=== PATIENT | female | born 1970 | race Two or more races ===

== ENCOUNTER 2024-05-05 11:11 | Emergency (ER) | payer BC, OTHER ==
[~2024-05-05] VITALS: Ht 154.9 cm; Wt 84.8 kg
[2024-05-05 11:54] VITALS: BP 129/84; PULSE 98; RESP 18; TEMP 98.8; O2SAT 93
[2024-05-05 13:31] LABS: Basophils # (auto) 0 10 ^3/uL (0-0.2); Basophils % (auto) 0.4 % (0.0-2.0); Eosinophils # (auto) 0.1 10 ^3/uL (0-0.8); Eosinophils % (auto) 0.8 % (0.0-7.0); Hematocrit 44.9 % (36.0-46.0); Hemoglobin 15.5 g/dL (12.2-16.2); Lymphocytes # (auto) 2.1 10 ^3/uL (0.4-5.4); Lymphocytes % (auto) 25.4 % (10.0-50.0); Mean Corpuscular Hemoglobin 29.8 pg (28.0-32.0); Mean Corpuscular Hgb Conc. 34.4 g/dL (32.0-36.0); Mean Corpuscular Volume 86.5 fL (80.0-100.0); Monocytes # (auto) 0.8 10 ^3/uL (0-1.3); Monocytes % (auto) 9.3 % (0.0-12.0); Neutrophils # (auto) 5.3 10 ^3/uL (1.6-8.6); Neutrophils % (auto) 64.1 % (37.0-80.0); Red Blood Cells 5.19 10^6/uL (4.0-5.20); Red Cell Distribution Width 14.6 % (11.8-14.3); White Blood Cell 8.2 10^3/uL (4.4-10.8)
[2024-05-05 13:36] LABS: Urine Bacteria FEW /hpf (None Seen); Urine Blood TRACE /uL (Negative); Urine Clarity Clear (Clear); Urine Color Colorless (Yellow); Urine Protein, UAD Negative (Negative); Urine Specific Gravity 1.006 (1.001-1.035); Urine Urobilinogen Normal (Negative); Urine WBC 1 /hpf (0 - 5)
[2024-05-05 13:46] LABS: Chloride 107 mmol/L (98-107); Sodium 140 mmol/L (136-145)
[2024-05-05 13:47] LABS: Anion Gap 7 (5-15); Calcium 9.6 mg/dL (8.7-10.4); Carbon Dioxide 26 mmol/L (20-30)
[2024-05-05 13:52] LABS: BUN/Creatinine Ratio 11.5 (10.0-20.0); Blood Urea Nitrogen 9 mg/dL (9-23); Glucose 94 mg/dL (74-106)
[2024-05-05] MEDS ORDERED: PRED20TA2 PO (14:09)
[2024-05-05] MEDS ORDERED: AUG875T PO (14:16)
== END 2024-05-05 14:18 | disposition home or self-care (01) ==
LOC: ER 11:11
DX: G44.209 Tension-type headache, unspecified, not intractable (principal); H66.93 Otitis media, unspecified, bilateral; Z86.2 Personal history of diseases of the blood and blood-forming organs and certain disorders involving the immune mechanism
CPT/HCPCS: 36415; 70450; 80048; 81001; 85025

== ENCOUNTER 2025-03-29 11:46 | Inpatient (IN) | payer BC ==
[~2025-03-29] VITALS: Ht 157.5 cm; Wt 86.7 kg
[~2025-03-29 11:46] MED LIST: AUG875T PO; PRED20TA2 PO
[2025-03-29] MEDS: SODIUM CHLORIDE 0.9% 500 ML IVB ONE (12:15)
--- NOTE | 2025-03-29 12:20 | ED.PDOC ---
HPI (NEURO) HPI Comments 54 y/o F, presents to the ED for CC of dizziness. Patient states, she has been experiencing symptoms of dizziness with associated substernal chest pain that radiates to her back [id number]. Patient reports, chest pain to feel as acid reflex; describes pain to be burning in sensation. Patient denies change in vision, palpitations, nausea, vomiting, chills, or fever. No other symptoms or modifying factors present at this time. Chief Complaint: Dizziness Time Seen by MD: 12:05 Primary Care Provider: RATNA Zazueta Notes: Nurses Notes, Medications, Allergies Information Source: Patient Mode of Arrival: Ambulatory Severity: Moderate Dizziness/Weakness Severity: Does not affect activitie Headache Severity: None Timing: Months Duration: Since onset Prehospital treatment: None Onset: At rest Circumstances: Spontaneous Symptoms: Vertigo, None Before: Normal During: Awake After: Normal Mentation History of: None Modifying factors: Nothing Associated Signs and Symptoms: Chest Pain Past Medical History PAST MEDICAL HISTORY: Anemia Surgical History: Denies all surgeries FIRER LOCOMOTIVE History: No Pertinent FIRER LOCOMOTIVE History Family History Family History: Reviewed,noncontributory to illness Social History Smoker: Non-Smoker Alcohol: Denies ETOH Use Drugs: Denies Drug Use Lives In: Home Constitutional: denies: chills, diaphoresis, fatigue, fever, malaise, sweats, weakness, others EENTM: denies: blurred vision, double vision, ear bleeding, ear discharge, ear drainage, ear pain, ear ringing, eye pain, eye redness, hearing loss, mouth pain, mouth swelling, nasal discharge, nose bleeding, nose congestion, nose pain, photophobia, tearing, throat pain, throat swelling, voice changes, others Respiratory: denies: cough, hemoptysis, orthopnea, SOB at rest, shortness of breath, SOB with excertion, stridor, wheezing, others Cardiovascular: reports: chest pain; denies: dizzy spells, diaphoresis, Dyspnea on exertion, edema, irregular heart beat, left arm pain, lightheadedness, palpitations, PND, syncope, others Gastrointestinal: denies: abdomen distended, abdominal pain, blood streaked bowels, constipated, diarrhea, dysphagia, difficulty swallowing, hematemesis, melena, nausea, poor appetite, poor fluid intake, rectal bleeding, rectal pain, vomiting, others Genitourinary: reports: abnormal vagina bleeding, burning, dyspareunia, dysuria , flank pain, frequency, hematuria, incontinence, pain, , vagina discharge, urgency, others Neurological: reports: dizziness; denies: fainting, headache, left sided numbness, left sided weakness, numbness, paresthesia, pre-existing deficit, right sided numbness, right sided weakness, seizure, speech problems, tingling, tremors, weakness, others Musculoskeletal: denies: back pain, gout, joint pain, joint swelling, muscle pain, muscle stiffness, neck pain, others Integumetry: denies: bruises, change in color, change in hair/nails, dryness, laceration, lesions, lumps, rash, wounds, others Allergic/Immunocompromised: denies: Difficulty Healing, Frequent Infections, Hives, Itching, others Hematologic/Lymphatic: denies: anemia, blood clots, easy bleeding, easy bruising, swollen glands, others Endocrine: denies: excessive hunger, excessive sweating, excessive thirst, excessive urination, flushing, intolerance to cold, intolerance to heat, unexplained weight gain, unexplained weight loss, others Psychiatric: denies: anxiety, bipolar disorder, depression, hopeless, panic disorder, schizophrenia, sleepless, suicidal, others All Other Systems: Reviewed and Negative Physical Exam General Appearance: Moderate Distress HEENT: Normal ENT Inspection, Pharynx Normal, TMs Normal Neck: Full Range of Motion, Non-Tender, Normal, Normal Inspection Respiratory: Chest Non-Tender, Lungs Clear, No Accessory Muscle Use, No Respiratory Distress, Normal Breath Sounds Cardiovascular: No Edema, No JVD, No Murmur, No Gallop, Normal Peripheral Pulses, Regular Rate/Rhythm Breast Exam: Deferred Gastrointestinal: No Organomegaly, Non Tender, No Pulsatile Mass, Normal Bowel Sounds, Soft Genitalia: Deferred Pelvic: Deferred Rectal: Deferred Extremities: No calf tenderness, Normal capillary refill, No pedal edema Musculoskeletal : Apperance: Normal Neurologic: Alert, tax processor II-XII nml as Tested, Motor Weakness, Normal Affect, Normal Mood, No Sensory Deficits Cerebellar Function: Normal Reflexes: Normal Skin: Dry, Normal Color, Warm Lymphatic: No Adenopathy EKG EKG : Pulse Rate (adult): 96 [place]: Normal Cardiac Rhythm: NSR Block: None Hypertrophy: None ST: Normal Was a procedure done? Was a procedure done?: No Differential Diagnosis (SZ) Seizure: N/A General Weakness: Vertigo: central, Vertigo: peripheral X-Ray, Labs, Meds, VS Vital Signs Date Time Temp Pulse Resp B/P (MAP) Pulse Ox O2 Delivery O2 Flow Rate FiO2 03/29/25 13:16 86 18 125/85 (98) 98 03/29/25 13:16 86 18 98 03/29/25 12:20 96 03/29/25 12:13 96 03/29/25 11:51 98.7 102 18 142/73 (96) 95 98.7 Lab Test 03/29/25 14:00 03/29/25 13:00 03/29/25 11:58 03/29/25 11:55 Range/Units Troponin I High Sensitivity < 3 L < 3 L </=34 ng/L White Blood Count 7.2 4.4-10.8 10^3/uL Red Blood Count 4.83 4.0-5.20 10^6/uL Hemoglobin 14.1 12.2-16.2 g/dL Hematocrit 41.9 36.0-46.0 % Mean Corpuscular Volume 86.7 80.0-100.0 fL Mean Corpuscular Hemoglobin 29.2 28.0-32.0 pg Mean Corpuscular Hemoglobin Concent 33.7 32.0-36.0 g/dL Red Cell Distribution Width 13.8 11.8-14.3 % Platelet Count 239 140-450 10^3/uL Mean Platelet Volume 8.4 6.9-10.8 fL Neutrophils (%) (Auto) 50.6 37.0-80.0 % Lymphocytes (%) (Auto) 35.2 10.0-50.0 % Monocytes (%) (Auto) 10.8 0.0-12.0 % Eosinophils (%) (Auto) 2.9 0.0-7.0 % Basophils (%) (Auto) 0.5 0.0-2.0 % Neutrophils # (Auto) 3.6 1.6-8.6 10 ^3/uL Lymphocytes # (Auto) 2.5 0.4-5.4 10 ^3/uL Monocytes # (Auto) 0.8 0-1.3 10 ^3/uL Eosinophils # (Auto) 0.2 0-0.8 10 ^3/uL Basophils # (Auto) 0 0-0.2 10 ^3/uL Nucleated Red Blood Cells 0.2 % Sodium Level 146 H 136-145 mmol/L Potassium Level 3.7 3.5-5.1 mmol/L Chloride Level 110 H 98-107 mmol/L Carbon Dioxide Level 26 20-31 mmol/L Anion Gap 10 5-15 Blood Urea Nitrogen 13 9-23 mg/dL Creatinine 0.76 0.550-1.02 mg/dL Glomerular Filtration Rate Calc 93 >90 mL/min BUN/Creatinine Ratio 17.1 10.0-20.0 Serum Glucose 106 74-106 mg/dL Calcium Level 9.5 8.7-10.4 mg/dL Total Bilirubin 0.3 0.2-1.0 mg/dL Aspartate Amino Transferase (AST) 34 <34 U/L Alanine Aminotransferase (ALT) 47 H 7-40 U/L Alkaline Phosphatase 186 H 46-116 U/L Total Protein 6.9 5.7-8.2 g/dL Albumin 4.3 3.2-4.8 g/dL Lipase 22 12-53 U/L POC Glucose 157 H 70-106 mg/dl Urine Color Colorless Yellow Urine Clarity Clear Clear Urine pH 5.5 5.0-9.0 Urine Specific [place] 1.010 1.001-1.035 Urine Protein Negative Negative Urine Ketones Negative Negative Urine Blood Negative Negative /uL Urine Nitrite Negative Negative Urine Bilirubin Negative Negative Urine Urobilinogen Normal Negative mg/dL Urine Leukocyte Esterase Negative Negative /uL Urine RBC 2 0 - 4 /hpf Urine Microscopic WBC < 1 0-5 /HPF Urine Squamous Epithelial Cells None seen <5 /hpf Urine Bacteria None seen None Seen /hpf Urine Glucose Normal Normal mg/dL Current Medications Medications (Trade) Dose Ordered Sig/Lucila Route Start Time Stop Time Status Last Admin Ondansetron HCl (Zofran) 4 mg ONCE ONCE IV 03/29/25 12:15 03/29/25 12:16 DC 03/29/25 13:00 Sodium Chloride 500 ml @ 500 mls/hr Q1H ONCE IVB 03/29/25 12:15 03/29/25 13:14 DC 03/29/25 12:15 GALLBLADDER US: Impression: Echogenic liver which can be seen with hepatic steatosis, cirrhosis. The patient's urine test is negative for infection The patient's CBC is within normal limits The chemistry panel is within normal limits The troponin level x2 is negative The patient is still having persistent symptoms The patient was given an IV with the Zofran 4 mg IV push The patient was also given normal saline as a bolus The patient continues to be symptomatic Images Reviewed?: Images reviewed and evaluated by me Time of 1ST Reevaluation: 12:35 Reevaluation 1ST: Unchanged Patient Education/Counseling: Diagnosis, Treatment, Prognosis Family Education/Counseling: No Family Present Departure 1 Departure Time of Disposition: 15:02 Impression: Primary Impression: Autonomic dysfunction Additional Impression: Acute chest pain Disposition: 09 ADMITTED INPATIENT Admit to: Tele Condition: Fair Critical Care Note Critical Care Time?: Yes (35 min-critical care time only) Stability Stability form required: Yes Unstable for transfer: Telemetry monitoring (Telemetry monitoring required), ED Physician Assesment (Clinical assesment) Heart Score Heart Score: Heart Score Response (Comments) Value History Moderate Suspicious 1 EKG Repolarization Disturb 1 Age 45-64 1 Risk Factors 1 or 2 risk factors 1 Troponin N/A 0 Total 4 I personally scribed for ISAAC JULIAN MD ([email or web address]) on 03/29/25 at 12:20. Electronically submitted by [facility] [place] ([email or web address]). I personally scribed for ISAAC JULIAN MD ([email or web address]) on 03/29/25 at 12:20. Electronically submitted by [facility] [place] ([email or web address]). I personally scribed for ISAAC JULIAN MD ([email or web address]) on 03/29/25 at 13:06. Electronically submitted by [facility] [place] ([email or web address]). I personally scribed for ISAAC JULIAN MD ([email or web address]) on 03/29/25 at 13:49. Electronically submitted by [facility] [place] ([email or web address]). ISAAC JULIAN MD Mar 29, 2025 12:20
[2025-03-29 12:43] LABS: Urine Bacteria None Seen /hpf (None Seen)
[2025-03-29 12:48] LABS: Urine Blood Negative /uL (Negative); Urine Clarity Clear (Clear); Urine Color Colorless (Yellow); Urine Protein, UAD Negative (Negative); Urine Squamous Epithelial Cell None Seen /hpf (<5); Urine Urobilinogen Normal (Negative); Urine WBC < 1 /HPF (0-5); Urine pH 5.5 (5.0-9.0)
--- NOTE | 2025-03-29 12:51 | DVH ---
Technique: Real-time ultrasound imaging of the abdomen was performed with grayscale and color Doppler . Indication: pain Comparison: None Findings: Liver measures 12.8 cm. It is increased in echogenicity and echotexture without focal mass. Portal v ein is normal in caliber and demonstrates normal hepatopetal flow. Gallbladder demonstrates no evidence for cholelithiasis. There is no pericholecystic fluid. The wall thickness is normal. The common bile duct measures 5 mm. No intrahepatic biliary ductal dilatation. The right kidney measures 10.6 cm. There is no hydronephrosis or sonographic evidence of nephrolithia sis. The visualized portion of the pancreas is unremarkable. The visualized portion of the IVC is unremarkable. Impression: Echogenic liver which can be seen with hepatic steatosis, cirrhosis.
[2025-03-29] MEDS: ONDANSETRON HCL 4 MG/2 ML VIAL IV ONE (13:00)
[2025-03-29 13:15] LABS: Basophils # (auto) 0 10 ^3/uL (0-0.2); Basophils % (auto) 0.5 % (0.0-2.0); Eosinophils # (auto) 0.2 10 ^3/uL (0-0.8); Eosinophils % (auto) 2.9 % (0.0-7.0); Hematocrit 41.9 % (36.0-46.0); Hemoglobin 14.1 g/dL (12.2-16.2); Lymphocytes # (auto) 2.5 10 ^3/uL (0.4-5.4); Lymphocytes % (auto) 35.2 % (10.0-50.0); Mean Corpuscular Hemoglobin 29.2 pg (28.0-32.0); Mean Corpuscular Hgb Conc. 33.7 g/dL (32.0-36.0); Mean Corpuscular Volume 86.7 fL (80.0-100.0); Monocytes # (auto) 0.8 10 ^3/uL (0-1.3); Monocytes % (auto) 10.8 % (0.0-12.0); Neutrophils # (auto) 3.6 10 ^3/uL (1.6-8.6); Neutrophils % (auto) 50.6 % (37.0-80.0); Nucleated Red Blood Cells % 0.2 %; Platelet Count (auto) 239 10^3/uL (140-450); Red Blood Cells 4.83 10^6/uL (4.0-5.20); Red Cell Distribution Width 13.8 % (11.8-14.3); White Blood Cell 7.2 10^3/uL (4.4-10.8)
[2025-03-29 13:36] LABS: Albumin 4.3 g/dL (3.2-4.8); Anion Gap 10 (5-15); BUN/Creatinine Ratio 17.1 (10.0-20.0); Blood Urea Nitrogen 13 mg/dL (9-23); Calcium 9.5 mg/dL (8.7-10.4); Carbon Dioxide 26 mmol/L (20-31); Glucose 106 mg/dL (74-106); Potassium 3.7 mmol/L (3.5-5.1); Total Protein 6.9 g/dL (5.7-8.2)
[2025-03-29 13:37] LABS: Alanine Aminotransferase 47 U/L (7-40); Alkaline Phosphatase 186 U/L (46-116); Aspartate Aminotransferase 34 U/L (<34); Bilirubin, Total 0.3 mg/dL (0.2-1.0); Chloride 110 mmol/L (98-107); Sodium 146 mmol/L (136-145)
[2025-03-29 13:48] LABS: Lipase 22 U/L (12-53)
[2025-03-29] MEDS ORDERED: MORPHINE SULFATE INJ 2 MG/ml SYRG IV PRN (21:45)
[2025-03-29] MEDS ORDERED: NITROGLYCERIN 0.4 MG SL TAB SL PRN (21:45)
[2025-03-30 03:17] VITALS: PULSE 74; RESP 18; O2SAT 96
--- NOTE | 2025-03-30 04:15 | DVHHP2 ---
History of Present Illness Reason for Visit: Chest pain History of Present Illness 54-year-old female presents for evaluation of chest pain. Patient reports a three-month history of intermittent substernal pressure-like chest pain. She states that over the past three days the pain has become more constant and radiates to her back with associated shortness for breath and dizziness. Denies cough or fever. Past Medical History Anemia Past Surgical History Denies Family History Noncontributory Smoke: No ALCOHOL: none Drugs: None Lives: with Family Review of Systems Review of Systems Review of systems are currently negative otherwise addressed in HPI. Allergies: Coded Allergies: Codeine (Verified Allergy, Unknown, 05/05/24) Medications Current Medications Medications Dose Ordered Sig/Lucila Route Start Time Stop Time Status Last Admin Dose Admin Ondansetron HCl 4 mg Q4HP PRN IV 03/29/25 21:45 Nitroglycerin 0.4 mg Q5MINP PRN SL 03/29/25 21:45 Morphine Sulfate 2 mg Q30M PRN IV 03/29/25 21:45 Exam Vital Signs Vital Signs Date Time Temp Pulse Resp B/P (MAP) Pulse Ox O2 Delivery O2 Flow Rate FiO2 03/30/25 03:17 74 18 96 Room Air* 0 21 03/30/25 03:15 98.1 141/84 (103) 98.1 Exam Gen: 54-year-old female in no apparent distress. Skin: Warm, dry, normal color and texture, no rash. HEENT: Normocephalic atraumatic, mucous membranes moist and pink. Neck: Cervical and supraclavicular nodes normal without enlargement, trachea is midline, thyroid gland is normal without masses. Pulmonary: Clear to auscultation and percussion bilaterally. Cardiac: Regular rate and rhythm. No murmur Abdomen: Soft, nontender, nondistended, bowel sounds present all 4 quadrants, no guarding, no rigidity, no organomegaly. Extremities: No cyanosis, clubbing, no edema Neuro: Cranial nerves II through XII grossly intact, normal affect and speech, no focal motor deficits. Labs/Xrays Labs Test 03/29/25 14:00 03/29/25 13:00 03/29/25 11:58 03/29/25 11:55 Range/Units Troponin I High Sensitivity < 3 L </=34 ng/L White Blood Count 7.2 4.4-10.8 10^3/uL Red Blood Count 4.83 4.0-5.20 10^6/uL Hemoglobin 14.1 12.2-16.2 g/dL Hematocrit 41.9 36.0-46.0 % Mean Corpuscular Volume 86.7 80.0-100.0 fL Mean Corpuscular Hemoglobin 29.2 28.0-32.0 pg Mean Corpuscular Hemoglobin Concent 33.7 32.0-36.0 g/dL Red Cell Distribution Width 13.8 11.8-14.3 % Platelet Count 239 140-450 10^3/uL Mean Platelet Volume 8.4 6.9-10.8 fL Neutrophils (%) (Auto) 50.6 37.0-80.0 % Lymphocytes (%) (Auto) 35.2 10.0-50.0 % Monocytes (%) (Auto) 10.8 0.0-12.0 % Eosinophils (%) (Auto) 2.9 0.0-7.0 % Basophils (%) (Auto) 0.5 0.0-2.0 % Neutrophils # (Auto) 3.6 1.6-8.6 10 ^3/uL Lymphocytes # (Auto) 2.5 0.4-5.4 10 ^3/uL Monocytes # (Auto) 0.8 0-1.3 10 ^3/uL Eosinophils # (Auto) 0.2 0-0.8 10 ^3/uL Basophils # (Auto) 0 0-0.2 10 ^3/uL Nucleated Red Blood Cells 0.2 % Sodium Level 146 H 136-145 mmol/L Potassium Level 3.7 3.5-5.1 mmol/L Chloride Level 110 H 98-107 mmol/L Carbon Dioxide Level 26 20-31 mmol/L Anion Gap 10 5-15 Blood Urea Nitrogen 13 9-23 mg/dL Creatinine 0.76 0.550-1.02 mg/dL Glomerular Filtration Rate Calc 93 >90 mL/min BUN/Creatinine Ratio 17.1 10.0-20.0 Serum Glucose 106 74-106 mg/dL Calcium Level 9.5 8.7-10.4 mg/dL Total Bilirubin 0.3 0.2-1.0 mg/dL Aspartate Amino Transferase (AST) 34 <34 U/L Alanine Aminotransferase (ALT) 47 H 7-40 U/L Alkaline Phosphatase 186 H 46-116 U/L Total Protein 6.9 5.7-8.2 g/dL Albumin 4.3 3.2-4.8 g/dL Lipase 22 12-53 U/L POC Glucose 157 H 70-106 mg/dl Urine Color Colorless Yellow Urine Clarity Clear Clear Urine pH 5.5 5.0-9.0 Urine Specific [place] 1.010 1.001-1.035 Urine Protein Negative Negative Urine Ketones Negative Negative Urine Blood Negative Negative /uL Urine Nitrite Negative Negative Urine Bilirubin Negative Negative Urine Urobilinogen Normal Negative mg/dL Urine Leukocyte Esterase Negative Negative /uL Urine RBC 2 0 - 4 /hpf Urine Microscopic WBC < 1 0-5 /HPF Urine Squamous Epithelial Cells None seen <5 /hpf Urine Bacteria None seen None Seen /hpf Urine Glucose Normal Normal mg/dL Assessment/Plan Assessment/Plan Assessment Chest pain Plan Admit the patient to telemetry to the hospitalist ACS protocol Echocardiogram pending Continue treatment per orders. Plan discussed with: Patient My Orders Orders - MARGI HADDAD Procedure Category Date Status Time * Cardiology Consult CONS 03/29/25 Transmitted 21:36 Basic Metabolic Panel LAB 03/30/25 Logged 04:00 Admit ADMIT 03/29/25 Transmitted 21:36 Ondansetron Hcl PHA 03/29/25 In Process (Zofran) 21:45 Cardiac DIET 03/30/25 Transmitted Diet-2gna,Lofat,Lochol Breakfast Echo 2d Mode Cardiac US 03/29/25 Transmitted DOP 21:36 Condition: Fair [facility] 03/29/25 Transmitted 21:36 Bedrest With Bathroom [facility]SC[facility] 03/29/25 In Process Privileg 21:36 Nitroglycerin PHA 03/29/25 In Process Sublingual (Ntrostat 21:45 Morphine Sulfate PHA 03/29/25 In Process Injection 21:45 Stat Ekg For Chest [facility] 03/29/25 In Process Pain 21:36 Notify Of Changes [facility] 03/29/25 In Process From Base 21:36 Binding Cutter Synthetic Cloth For [facility] 03/29/25 In Process 24 Hours 21:36 Emergency Dysrhythmia [facility] 03/29/25 In Process Protocol 21:36 Rhythm Strips Once [facility] 03/29/25 In Process Every Shift 21:36 Oxygen By Nasal RT 03/29/25 Transmitted Cannula 21:36 Thyroid Stimulating LAB 03/30/25 Logged Hormone 04:10 Lipid Panel LAB 03/30/25 Logged 04:10 Date of Service: Mar 29, 2025 Billing Provider: MARGI HADDAD Common Visit Codes: [id number] INP/OBS CARE (HIGH) MARGI HADDAD Mar 30, 2025 04:15
--- NOTE | 2025-03-30 06:26 | DVH ---
EXAM: XR Chest, 1 View CLINICAL INDICATION: Pain TECHNIQUE: Frontal view of the chest. COMPARISON: No relevant prior studies available. FINDINGS: LUNGS AND PLEURAL SPACES: Unremarkable. No consolidation. No pneumothorax. HEART: Unremarkable. No cardiomegaly. MEDIASTINUM: Unremarkable. Normal mediastinal contour. BONES/JOINTS: Unremarkable. No acute fracture. IMPRESSION: No acute cardiopulmonary process.
[2025-03-30 07:40] LABS: Potassium 3.7 mmol/L (3.5-5.1); Sodium 144 mmol/L (136-145)
[2025-03-30 07:41] LABS: Anion Gap 8 (5-15); Calcium 9.6 mg/dL (8.7-10.4); Carbon Dioxide 28 mmol/L (20-31)
[2025-03-30 07:46] LABS: BUN/Creatinine Ratio 14.3 (10.0-20.0); Blood Urea Nitrogen 11 mg/dL (9-23); Glucose 100 mg/dL (74-106); Triglycerides 121 mg/dL (< 150)
[2025-03-30 07:49] LABS: Chloride 108 mmol/L (98-107); Cholesterol 186 mg/dL (< 200); HDL Cholesterol 46 mg/dL (40-59); LDL Cholesterol 133 mg/dL (< 100)
[2025-03-30 09:00] VITALS: BP 121/73; PULSE 85; RESP 18; TEMP 97.8; O2SAT 95
--- NOTE | 2025-03-30 11:06 | DVHCONRES ---
Date Seen: Mar 30, 2025 Resident Creating Document: KEVIN MONTES RESIDENT Reason for Consultation Chest pain History of Present Illness Patient is a 54-year-old female with no significant past medical history who comes in due to midepigastric pain. According to the patient, yesterday on 03/29/2025 she started experiencing a midepigastric pain which was pressure-like in nature with radiation to the back, she notes the pain as 7/10 at the time of onset without any exacerbating or relieving factors. Patient also notes he has been having similar pain intermittently for the past 3 months along with a globus sensation. Denies similar symptoms in the past. Patient also notes that she has been taking ibuprofen daily 800 mg for years due to her headache, she had an endoscopy 3 years ago which at that time was unremarkable. On review of systems patient is complaining of fatigue, shortness of breaths on exertion ongoing for the last 2 weeks and nausea. Serial troponins were <3, <3. EKG shows minimal borderline T abnormalities. Past Medical History Denies Past Surgical History Appendectomy, tummy tuck surgery Social History Smoking: Denies Alcohol: Denies Drugs: Denies Father from heart disease at the age of 89 Mother from lung cancer at the age of 64 Allergies: Coded Allergies: Codeine (Verified Allergy, Unknown, 05/05/24) Home Meds Active Scripts Amoxicillin & Pot Clavulanate (AUGMENTIN TABLET) 875 Mg Tb, 875 MG PO BID for 7 Days, #14 TAB Prov:KAYLA RICE 05/05/24 Prednisone (Prednisone) 20 Mg Tab, 60 MG PO BS, #15 TAB Prov:KAYLA RICE 05/05/24 Current Medications Current Medications Medications (Trade) Dose Ordered Sig/Lucila Route PRN Reason Start Time Stop Time Status Last Admin Ondansetron HCl (Zofran) 4 mg Q4HP PRN IV NAUSEA / VOMITING 03/29/25 21:45 Nitroglycerin (Ntrostat Sublingual) 0.4 mg Q5MINP PRN SL FOR CHEST PAIN 03/29/25 21:45 Morphine Sulfate 2 mg Q30M PRN IV FOR CHEST PAIN 03/29/25 21:45 Review of Systems Patient seen and examined at bedside. Patient is alert and oriented to time, p lace person and responding to all questions. General: Fatigue Eyes: No Pain, No Vision change, No Conjunctivae inflammation, No Eyelid inflammation, No Other, No Redness ENT: No Ear pain, No Ear discharge, No Nose pain, No Nose discharge, No Nose congestion, No Mouth pain, No Mouth swelling, No Throat pain, No Throat swelling, No Other Cardiovascular: No Chest Pain, No Palpitations, No Orthopnea, No Paroxysmal No Dyspnea, No Edema, No Lt Headedness, No Other Respiratory: No Cough, No Dry, No Shortness of breath, SOB with exertion, No Wheezing, No Hemoptysis, No Pleuritic Pain, No Sputum, No Other Gastrointestinal: Nausea, No Vomiting, No Abdominal Pain, No Diarrhea, No Constipation, No Melena, No Hematochezia, No Other Genitourinary: No Dysuria, No Frequency, No Incontinence, No Hematuria, No Retention, No Other Musculoskeletal: No other, No neck pain, No shoulder pain, No arm pain, No back pain, No hand pain, No leg pain, No foot pain Skin: No Rash, No Lesions, No Jaundice, No Bruising, No Other Vital Signs Vital Signs Date Time Temp Pulse Resp B/P (MAP) Pulse Ox O2 Delivery O2 Flow Rate FiO2 03/30/25 08:23 Room Air* 0 21 03/30/25 08:00 91 03/30/25 06:30 98.1 18 129/76 (93) 95 98.1 Physical Exam General Appearance: Cooperative. Well developed. Well nourished. NAD Head Exam: Normal inspection Neck Exam: Normal inspection. Non-tender. Normal alignment Pulmonary/Respiratory: Chest non-tender. Clear bilateral breath sounds, no crackles, no wheezing. Cardiovascular/Chest: Regular rate and rhythm. No murmurs. No JVD. Peripheral Pulses: 2+ Radial (R). 2+ Radial (L). 2+ Pedal (R). 2+ Pedal (L) Abdominal Exam: Normal bowel sounds. Soft. normal abdomen, no visible veins, Nontender. No hepatospenomegaly. No masses Ankle Exam: Negative ankle edema Lower extremities: Negative lower extremity edema Neuro/Mental Status: A&O x4. Coherent. Thoughts/Psych: Normal thought pattern. Appropriate mood and affect. Good judgement and insight Skin Exam: Normal inspection. Normal color. Warm. Dry Labs/Diagnostic Data Labs Test 03/30/25 06:57 6/18/25 13:00 03/29/25 11:58 03/29/25 11:55 Range/Units Sodium Level 144 136-145 mmol/L Potassium Level 3.7 3.5-5.1 mmol/L Chloride Level 108 H 98-107 mmol/L Carbon Dioxide Level 28 20-31 mmol/L Anion Gap 8 5-15 Blood Urea Nitrogen 11 9-23 mg/dL Creatinine 0.77 0.550-1.02 mg/dL Glomerular Filtration Rate Calc 92 >90 mL/min BUN/Creatinine Ratio 14.3 10.0-20.0 Serum Glucose 100 74-106 mg/dL Calcium Level 9.6 8.7-10.4 mg/dL Troponin I High Sensitivity < 3 L </=34 ng/L B-Type Natriuretic Peptide 2.10 0-100 pg/mL Triglycerides Level 121 < 150 mg/dL Cholesterol Level 186 < 200 mg/dL LDL Cholesterol 133 H < 100 mg/dL HDL Cholesterol 46 40-59 mg/dL Thyroid Stimulating Hormone (TSH) 2.60 0.55-4.78 uIU/mL White Blood Count 7.2 4.4-10.8 10^3/uL Red Blood Count 4.83 4.0-5.20 10^6/uL Hemoglobin 14.1 12.2-16.2 g/dL Hematocrit 41.9 36.0-46.0 % Mean Corpuscular Volume 86.7 80.0-100.0 fL Mean Corpuscular Hemoglobin 29.2 28.0-32.0 pg Mean Corpuscular Hemoglobin Concent 33.7 32.0-36.0 g/dL Red Cell Distribution Width 13.8 11.8-14.3 % Platelet Count 239 140-450 10^3/uL Mean Platelet Volume 8.4 6.9-10.8 fL Neutrophils (%) (Auto) 50.6 37.0-80.0 % Lymphocytes (%) (Auto) 35.2 10.0-50.0 % Monocytes (%) (Auto) 10.8 0.0-12.0 % Eosinophils (%) (Auto) 2.9 0.0-7.0 % Basophils (%) (Auto) 0.5 0.0-2.0 % Neutrophils # (Auto) 3.6 1.6-8.6 10 ^3/uL Lymphocytes # (Auto) 2.5 0.4-5.4 10 ^3/uL Monocytes # (Auto) 0.8 0-1.3 10 ^3/uL Eosinophils # (Auto) 0.2 0-0.8 10 ^3/uL Basophils # (Auto) 0 0-0.2 10 ^3/uL Nucleated Red Blood Cells 0.2 % Total Bilirubin 0.3 0.2-1.0 mg/dL Aspartate Amino Transferase (AST) 34 <34 U/L Alanine Aminotransferase (ALT) 47 H 7-40 U/L Alkaline Phosphatase 186 H 46-116 U/L Total Protein 6.9 5.7-8.2 g/dL Albumin 4.3 3.2-4.8 g/dL Lipase 22 12-53 U/L POC Glucose 157 H 70-106 mg/dl Urine Color Colorless Yellow Urine Clarity Clear Clear Urine pH 5.5 5.0-9.0 Urine Specific [place] 1.010 1.001-1.035 Urine Protein Negative Negative Urine Ketones Negative Negative Urine Blood Negative Negative /uL Urine Nitrite Negative Negative Urine Bilirubin Negative Negative Urine Urobilinogen Normal Negative mg/dL Urine Leukocyte Esterase Negative Negative /uL Urine RBC 2 0 - 4 /hpf Urine Microscopic WBC < 1 0-5 /HPF Urine Squamous Epithelial Cells None seen <5 /hpf Urine Bacteria None seen None Seen /hpf Urine Glucose Normal Normal mg/dL Assessment Chest pain, recurrent and ongoing Obesity class 2 Dyslipidemia with LDL 133 Plan: Patient continues to complain of intermittent and persistent chest pain, 7/10 in intensity without any exacerbating or relieving factors. Considering patient's risk factor and persistent nature of symptoms, patient will be scheduled for an inpatient stress test Thank you so much for the opportunity to consult on your patient. Cardiology team will follow the patient. In case of any questions or concerns please feel free to reach out. Plan discussed with Dr. Gomez Plan discussed with: Patient, Spouse, Other (RN) Visit Coding Cardiology RES Date of Service: Mar 30, 2025 Billing Provider: RYAN GOMEZ Sr., MD Cardiology Common Codes: [id number] INP/OBS CARE (High) KEVIN MONTES Mar 30, 2025 11:06
[2025-03-30 13:00] VITALS: BP 100/63; PULSE 77; RESP 16; TEMP 97.5; O2SAT 97
[2025-03-30] MEDS: REGADENOSON 0.4 MG/5 ML SYRG IV ONE ×2 (13:41)
[2025-03-30] MEDS: ACETAMINOPHEN 325 MG TAB PO PRN (14:07)
[2025-03-30] MEDS: ONDANSETRON HCL 4 MG/2 ML VIAL IV PRN (14:15)
--- NOTE | 2025-03-30 14:17 | ECG ---
[facility] Test Date: 2025-03-29 Test Time: 12:04:21 Pat Name: TOM HOFFMAN Department: ER Room: [address] [place] [address] Gender: F Hatchery Man: : 1970 Requested By: ISAAC JULIAN Order Number: [id number] Reading MD: Jose Daniel Lentz Measurements Intervals Winger Rate: 96 P: 67 MD: 135 QRS: 69 QRSD: 77 T: -38 QT: 423 QTc: 535 Interpretive Statements Sinus rhythm Borderline T abnormalities, diffuse leads Prolonged QT interval Electronically Signed On 03-31-2025 21:17:13 PDT by Jose Daniel Lentz Please click the below link to view image of tracing.
--- NOTE | 2025-03-30 16:52 | DVHSR ---
APPROVED REPORT EXAM: Two-dimensional and M-mode echocardiogram with Doppler and color Doppler. Blood Pressure: 129/76 mmHg INDICATION Chest Pain RISK FACTORS Height: 5'2, Weight: 191 DIMENSIONS LVDd4.3 (3.8-5.7cm)LA (2D)2.8 (1.9-4.0cm)Aortic Root2.7 (2.0-3.7cm) LVDs3.0 (2.5-4.0cm)LA (MM) (1.9-4.0cm)Aortic Cusp Exc1.6 (1.5-2.0cm) EF (%) 55.0 (55-70%)Rt. Atrium2.9 (1.9-4.0cm)Asc. Aorta cm IVSd0.7 (0.7-1.1cm)RV (D)3.2 (1.8-2.4cm) PWd0.8 (0.7-1.1cm) Mitral Valve MitralMitral Stenosis E wave0.48m/sMV Mean GR.mmHg A wave0.65m/sMV Peak GR.mmHg E/A ratio0.72D MVAcm2 DECEL [id number] 1/2 Timems Aortic Valve Aortic ValveAortic Stenosis V10.85m/Bety Mean GR.5mmHg V21.46m/Bety Peak GR.9mmHg LVOT Diameter2.0 (1.8-2.4cm)Doppler AVA1.83cm2 Pulmonic Valve V21.10m/s Tricuspid Valve TR Velocity2.51m/s [id number] Other Information Quality : Technically LimitedRhythm : Conclusion LVEF 55-60%, mild LVH RV size and function normal
[2025-03-30 17:00] VITALS: BP 113/72; PULSE 84; RESP 20; TEMP 97.6; O2SAT 94
[2025-03-30 19:30] VITALS: PULSE 92; RESP 16; O2SAT 97
[2025-03-31 02:30] VITALS: BP 103/77; PULSE 68; RESP 18; O2SAT 96
[2025-03-31 03:55] VITALS: BP 106/64; PULSE 75; RESP 18; O2SAT 92
[2025-03-31 06:25] VITALS: BP 111/80; PULSE 86; RESP 18; TEMP 97.8; O2SAT 95
[2025-03-31 07:23] VITALS: PULSE 82; RESP 12; O2SAT 96
[2025-03-31 07:44] VITALS: TEMP 98.1
[2025-03-31 09:20] VITALS: BP 125/88; PULSE 85; RESP 12; O2SAT 96
--- NOTE | 2025-03-31 10:43 | DVHPNRES ---
Progress Note Date Seen: Mar 31, 2025 Resident Creating Document: KEVIN MONTES RESIDENT Medical Necessity Reason Pt with a Central, PICC or Fol: No Subjective Review of Systems Patient seen and examined at bedside. Denies any active ongoing chest pain or shortness of breaths. Rest of the review negative. Objective vital signs Vital Sign Date Time Temp Pulse Resp B/P (MAP) Pulse Ox O2 Delivery O2 Flow Rate FiO2 03/31/25 09:20 85 12 125/88 (100) 96 03/31/25 07:44 98.1 03/31/25 07:23 Room Air* 0 21 medications Current Medications Medications Dose Ordered Sig/Lucila Route Start Time Stop Time Status Last Admin Dose Admin Ondansetron HCl 4 mg Q4HP PRN IV 03/29/25 21:45 03/30/25 19:55 4 MG Nitroglycerin 0.4 mg Q5MINP PRN SL 03/29/25 21:45 Morphine Sulfate 2 mg Q30M PRN IV 03/29/25 21:45 Acetaminophen 650 mg Q12HP PRN PO 03/30/25 12:45 03/31/25 05:50 650 MG Examination General Appearance: Cooperative. Well developed. Well nourished. NAD Head Exam: Normal inspection Neck Exam: Normal inspection. Non-tender. Normal alignment Pulmonary/Respiratory: Chest non-tender. Clear bilateral breath sounds, no crackles, no wheezing. Cardiovascular/Chest: Regular rate and rhythm. No murmurs. No JVD. Peripheral Pulses: 2+ Radial (R). 2+ Radial (L). 2+ Pedal (R). 2+ Pedal (L) Abdominal Exam: Normal bowel sounds. Soft. normal abdomen, no visible veins, Nontender. No hepatospenomegaly. No masses Ankle Exam: Negative ankle edema Lower extremities: Negative lower extremity edema Neuro/Mental Status: A&O x4. Coherent. Thoughts/Psych: Normal thought pattern. Appropriate mood and affect. Good judgement and insight Skin Exam: Normal inspection. Normal color. Warm. Dry laboratory and microbiology Laboratory Tests 03/30/25 06:57 03/29/25 13:00 Test 03/30/25 06:57 Range/Units Serum Glucose 100 74-106 mg/dL Problem List/Assessment/Plan Problem List/Assessment/Plan Chest pain, recurrent Presumptive obstructive CAD Obesity class 2 Dyslipidemia with LDL 133 Prediabetes with Hb A1c 5.8% Plan: Stress test completed yesterday, preliminarily which is positive for anterior and apical wall ischemia Patient will be scheduled for a left heart catheterization procedure on Thursday04/03/25 Echocardiogram: LVEF 55-60%. Mild LVH. RV size and function normal Aspirin 81 mg daily Atorvastatin 40 mg daily Counseled patient extensively on lifestyle modifications including diet and exercise Thank you so much for the opportunity to consult on your patient. Cardiology team will follow the patient. In case of any questions or concerns please feel free to reach out. Plan discussed with Dr. Gomez Plan discussed with: Patient, Spouse, Other (RN) My Orders My Orders Orders - KEVIN MONTES Procedure Category Date Status Time Cardiolite Multiple NM 03/30/25 Taken 11:43 Visit Coding Cardiology RES Date of Service: Mar 31, 2025 Billing Provider: RYAN GOMEZ Sr., MD Cardiology Common Codes: 51130-[id number] HOSP CARE(High KEVIN MONTES RESIDENT Mar 31, 2025 10:43
[2025-03-31] MEDS ORDERED: ASPirin 81 mg TAB PO ONE (11:00)
--- NOTE | 2025-03-31 13:43 | DVHSR ---
APPROVED REPORT Exam: Nuclear Stress Test BMI: 0 Stress Test Details Stress Test: Pharmacologic stress testing performed using 0.4 mg of regadenoson per 5 mL given IV ov er 10 seconds. HR Resting HR: 86 bpmMax Heart Rate (APMHR): 166 bpm Max HR Achieved: 107 bpmTarget HR (85% APMHR): 141 bpm % of APMHR: 64 Recovery HR: 92 bpm BP Resting BP: 138/92 mmHg Recovery BP: 122/91 mmHg ECG Resting ECG: Sinus Rhythm Clinical Reason for Termination: Completed protocol Nurse Comments Recieved pt. from [employer]. A/Ox4 on RA. Connected to nurse monitoring, VS stable. PIV flushes well. Re viewed POC. Pt. verbalized understanding of procedure including risks and side effects, agrees for st ress testing. Lexiscan stress test performed per protocol. [employer] tech administered Cardiolite. Pt. tolerated well . Pt. stable, no change on exam. VS returned to baseline. Transferred to [employer] via wheelchair w/ te ch. Stress ECG Conclusion Normal myocardial perfusion study. NM EXAM: Myocardial Perfusion REST/STRESS Imaging Protocol: Rest Tc-99m/Stress Tc-99m 1 day Resting Data Rest SPECT myocardial perfusion imaging was performed in supine position 60 minutes following the int ravenous injection of 12.9 mCi of Tc-99m Sestamibi. Time of rest injection: 12:15 Date: 03/30/2025 Time of rest imagin:15 Date: 03/30/2025 Administration Route: IV Administration Site: Right Hand Pharmacologic Stress Pharmacologic stress test was performed by injecting Regadenoson 0.4 mg IV push followed by the intra venous injection of 32.0 mCi of Tc-99m Sestamibi. Time of stress injection: 13:43 Date: 03/30/2025 Time of stress imagin:43 Date: 03/30/2025 Administration Route: IV Administration Site: Right Arm Gated Stress SPECT was performed 60 minutes after stress injection. The images were gated to evaluate regional wall motion and calculate left ventricular ejection fracti on. Stress only was performed in the Supine position. Nuclear Conclusion ECG Findings: negative for ischemia Clinical Findings: negative for ischemia Nuclear Findings: negative for ischemia Left Ventricular Function: normal Risk Study: low Normal myocardial perfusion study.
--- NOTE | 2025-03-31 13:47 | DVHDS2 ---
Discharge Summary Date of Admission Mar 29, 2025 at 21:36 Date of Discharge: Mar 31, 2025 Admitting Diagnosis Chest Pain Labs/Diagnostic Data: Laboratory Results Test 03/30/25 06:57 03/29/25 13:00 03/29/25 11:58 03/29/25 11:55 Sodium Level 144 mmol/L (136-145) Potassium Level 3.7 mmol/L (3.5-5.1) Chloride Level 108 mmol/L (98-107) Carbon Dioxide Level 28 mmol/L (20-31) Anion Gap 8 (5-15) Blood Urea Nitrogen 11 mg/dL (9-23) Creatinine 0.77 mg/dL (0.550-1.02) Glomerular Filtration Rate Calc 92 mL/min (>90) BUN/Creatinine Ratio 14.3 (10.0-20.0) Serum Glucose 100 mg/dL (74-106) Hemoglobin A1c 5.8 % A1C (<5.7) Calcium Level 9.6 mg/dL (8.7-10.4) Troponin I High Sensitivity < 3 ng/L (</=34) B-Type Natriuretic Peptide 2.10 pg/mL (0-100) Triglycerides Level 121 mg/dL (< 150) Cholesterol Level 186 mg/dL (< 200) LDL Cholesterol 133 mg/dL (< 100) HDL Cholesterol 46 mg/dL (40-59) Thyroid Stimulating Hormone (TSH) 2.60 uIU/mL (0.55-4.78) Beta HCG, Quantitative 3.2 mIU/mL (1.5-4.2) White Blood Count 7.2 10^3/uL (4.4-10.8) Red Blood Count 4.83 10^6/uL (4.0-5.20) Hemoglobin 14.1 g/dL (12.2-16.2) Hematocrit 41.9 % (36.0-46.0) Mean Corpuscular Volume 86.7 fL (80.0-100.0) Mean Corpuscular Hemoglobin 29.2 pg (28.0-32.0) Mean Corpuscular Hemoglobin Concent 33.7 g/dL (32.0-36.0) Red Cell Distribution Width 13.8 % (11.8-14.3) Platelet Count 239 10^3/uL (140-450) Mean Platelet Volume 8.4 fL (6.9-10.8) Neutrophils (%) (Auto) 50.6 % (37.0-80.0) Lymphocytes (%) (Auto) 35.2 % (10.0-50.0) Monocytes (%) (Auto) 10.8 % (0.0-12.0) Eosinophils (%) (Auto) 2.9 % (0.0-7.0) Basophils (%) (Auto) 0.5 % (0.0-2.0) Neutrophils # (Auto) 3.6 10 ^3/uL (1.6-8.6) Lymphocytes # (Auto) 2.5 10 ^3/uL (0.4-5.4) Monocytes # (Auto) 0.8 10 ^3/uL (0-1.3) Eosinophils # (Auto) 0.2 10 ^3/uL (0-0.8) Basophils # (Auto) 0 10 ^3/uL (0-0.2) Nucleated Red Blood Cells 0.2 % Total Bilirubin 0.3 mg/dL (0.2-1.0) Aspartate Amino Transferase (AST) 34 U/L (<34) Alanine Aminotransferase (ALT) 47 U/L (7-40) Alkaline Phosphatase 186 U/L (46-116) Total Protein 6.9 g/dL (5.7-8.2) Albumin 4.3 g/dL (3.2-4.8) Lipase 22 U/L (12-53) POC Glucose 157 mg/dl (70-106) Urine Color Colorless (Yellow) Urine Clarity Clear (Clear) Urine pH 5.5 (5.0-9.0) Urine Specific [facility] 1.010 (1.001-1.035) Urine Protein Negative (Negative) Urine Ketones Negative (Negative) Urine Blood Negative /uL (Negative) Urine Nitrite Negative (Negative) Urine Bilirubin Negative (Negative) Urine Urobilinogen Normal mg/dL (Negative) Urine Leukocyte Esterase Negative /uL (Negative) Urine RBC 2 /hpf (0 - 4) Urine Microscopic WBC < 1 /HPF (0-5) Urine Squamous Epithelial Cells None seen /hpf (<5) Urine Bacteria None seen /hpf (None Seen) Urine Glucose Normal mg/dL (Normal) Other Laboratory Tests 03/30/25 06:57 03/29/25 13:00 Brief Hx & Hospital Course: Patient was admitted for chest pain, NM stress test is POSITIVE. Patient was scheduled for [facility] on Thursday, however patient wants to leave AMA.2 Condition at Discharge: Poor Final Diagnosis/Problems List Chest pain, recurrent - POSITIVE STRESS TEST Presumptive obstructive CAD Obesity class 2 Dyslipidemia with LDL 133 Prediabetes with Hb A1c 5.8% Discharge Disposition: AMA Discharge Instruct/Medications Activity: Light activity Discharge Statement: "Patient was advised to return to the ER or call 911 if any headaches, dizziness, shortness of breath, chest pain, abdominal pain, bleeding, fevers, or worsening of medical condition. Patient was counseled about treatment plan, medications, possible side effects, patientverbalized understanding. All questions were answered to the best of my ability. This discharge took greater then 30 minutes in planning, reviewing documentation, counseling the patient, and discussing with other team members." ASSESSMENT ASSESSMENT Assessment Date of Service: Mar 31, 2025 Billing Provider: GERARDO THOMAS MD Common Visit Codes: 76901-RNN/OBS DISCH DAY <30MIN GERARDO THOMAS MD Mar 31, 2025 13:47
[2025-03-31] MEDS ORDERED: ATORVASTATIN 20 MG TAB PO SCH (22:00)
[2025-04-01] MEDS ORDERED: ASPirin 81 mg TAB PO SCH (10:00)
== END 2025-03-31 10:36 | disposition left against medical advice (07) | DRG 313 ==
LOC: ER 11:46 → OVERFLOW 21:36
PROVIDERS: ADMIT Internal Medicine; ATTEND Internal Medicine
DX: R07.89 Other chest pain (principal); G90.9 Disorder of the autonomic nervous system, unspecified; E66.812 Obesity, class 2; Z68.35 Body mass index [BMI] 35.0-35.9, adult; E78.5 Hyperlipidemia, unspecified; R73.03 Prediabetes; I25.10 Atherosclerotic heart disease of native coronary artery without angina pectoris; Z53.29 Procedure and treatment not carried out because of patient's decision for other reasons; Z88.5 Allergy status to narcotic agent
CPT/HCPCS: 36415; 71045; 76705; 78452; 80048; 80053; 80061; 81001; 82962; 83036; 83690; 83880; 84443; 84484; 84702; 85025; 93005; 93017; 93306; 96361; 96374; 99291; G0378; J2405

== ENCOUNTER 2025-04-02 07:42 | Inpatient (IN) | payer BC ==
[~2025-04-02] VITALS: Ht 157.5 cm; Wt 87.7 kg
--- NOTE | 2025-04-02 07:54 | ED.PDOC ---
History of Present Illness HPI Comments 54 year old female presents to the ED with a chief complaint of direct referral onset today (04/02/25). Patient states she was discharged from [facility] on 03/31/25, was told to return today for angiogram procedure due to constant chest pain since 03/29/25. She describes chest pain as a pinching, gas sensation. PMHx HLD, pre DM. Denies nausea, vomiting, diarrhea, fevers, chills, shortness of breath, dizziness, headache. No other symptoms or modifying factors present at this time. Time Seen by MD: 07:50 Primary Care Provider: RATNA Reviewed Notes: Medications, Allergies Allergies: Coded Allergies: Codeine (Verified Allergy, Unknown, 05/05/24) Home Meds Active Scripts Amoxicillin & Pot Clavulanate (AUGMENTIN TABLET) 875 Mg Tb, 875 MG PO BID for 7 Days, #14 TAB Prov:KAYLA RICE 05/05/24 Prednisone (Prednisone) 20 Mg Tab, 60 MG PO BS, #15 TAB Prov:KAYLA RICE 05/05/24 Information Source: Patient Mode of Arrival: Ambulatory Severity: Moderate Timing: Hours Duration: Since onset Prehospital treatment: None Past Medical History PAST MEDICAL HISTORY: Anemia, High Lipids Surgical History: Denies all surgeries [employer]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 History Family History Family History: Reviewed,noncontributory to illness Social History Smoker: Non-Smoker Alcohol: Denies ETOH Use Drugs: Denies Drug Use Lives In: Home Constitutional: denies: chills, diaphoresis, fatigue, fever, malaise, sweats, weakness, others EENTM: denies: blurred vision, double vision, ear bleeding, ear discharge, ear drainage, ear pain, ear ringing, eye pain, eye redness, hearing loss, mouth pain, mouth swelling, nasal discharge, nose bleeding, nose congestion, nose pain, photophobia, tearing, throat pain, throat swelling, voice changes, others Respiratory: denies: cough, hemoptysis, orthopnea, SOB at rest, shortness of breath, SOB with excertion, stridor, wheezing, others Cardiovascular: reports: chest pain; denies: dizzy spells, diaphoresis, Dyspnea on exertion, edema, irregular heart beat, left arm pain, lightheadedness, pal pitations, PND, syncope, others Gastrointestinal: denies: abdomen distended, abdominal pain, blood streaked bowels, constipated, diarrhea, dysphagia, difficulty swallowing, hematemesis, melena, nausea, poor appetite, poor fluid intake, rectal bleeding, rectal pain, vomiting, others Genitourinary: denies: abnormal vagina bleeding, burning, dyspareunia, dysuria, flank pain, frequency, hematuria, incontinence, pain, , vagina discharge, urgency, others Neurological: denies: dizziness, fainting, headache, left sided numbness, left sided weakness, numbness, paresthesia, pre-existing deficit, right sided numbness, right sided weakness, seizure, speech problems, tingling, tremors, weakness, others Musculoskeletal: denies: back pain, gout, joint pain, joint swelling, muscle pain, muscle stiffness, neck pain, others Integumetry: denies: bruises, change in color, change in hair/nails, dryness, laceration, lesions, lumps, rash, wounds, others Allergic/Immunocompromised: denies: Difficulty Healing, Frequent Infections, Hives, Itching, others Hematologic/Lymphatic: denies: anemia, blood clots, easy bleeding, easy b ruising, swollen glands, others Endocrine: denies: excessive hunger, excessive sweating, excessive thirst, excessive urination, flushing, intolerance to cold, intolerance to heat, unexplained weight gain, unexplained weight loss, others Psychiatric: denies: anxiety, bipolar disorder, depression, hopeless, panic disorder, schizophrenia, sleepless, suicidal, others All Other Systems: Reviewed and Negative Physical Exam General Appearance: No Apparent Distress, Normal HEENT: Normal ENT Inspection, Pharynx Normal, TMs Normal Neck: Full Range of Motion, Non-Tender, Normal, Normal Inspection Respiratory: Chest Non-Tender, Lungs Clear, No Accessory Muscle Use, No Respiratory Distress, Normal Breath Sounds Cardiovascular: No Edema, No JVD, No Murmur, No Gallop, Normal Peripheral Pulses, Regular Rate/Rhythm Breast Exam: Deferred Gastrointestinal: No Organomegaly, Non Tender, No Pulsatile Mass, Normal Bowel Sounds, Soft Genitalia: Deferred Pelvic: Deferred Rectal: Deferred Extremities: No calf tenderness, Normal capillary refill, Normal inspection, Normal range of motion, Non-tender, No pedal edema Musculoskeletal : Apperance: Normal Neurologic: Alert, chief cardiopulmonary technologist II-XII nml as Tested, No Motor Deficits, Normal Affect, Normal Mood, No Sensory Deficits Cerebellar Function: Normal Reflexes: Normal Skin: Dry, Normal Color, Warm Lymphatic: No Adenopathy Was a procedure done? Was a procedure done?: No EKG EKG : Pulse Rate (adult): 89 Cardiac Rhythm: NSR ST: Nonsp Differential Dx Considerations may include: unstable angina, stable angina, ami, chest wall pain, gastritis X-Ray, Labs, Meds, VS Vital Signs Date Time Temp Pulse Resp B/P (MAP) Pulse Ox O2 Delivery O2 Flow Rate FiO2 04/02/25 07:56 89 04/02/25 07:53 89 04/02/25 07:47 98.0 102 18 144/76 (98) 95 98.0 04/02/25 07:47 98.0 102 18 144/76 (98) 95 98.0 Lab Test 04/02/25 07:57 Range/Units White Blood Count 7.0 4.4-10.8 10^3/uL Red Blood Count 5.34 H 4.0-5.20 10^6/uL Hemoglobin 15.8 12.2-16.2 g/dL Hematocrit 46.4 #H 36.0-46.0 % Mean Corpuscular Volume 86.8 80.0-100.0 fL Mean Corpuscular Hemoglobin 29.5 28.0-32.0 pg Mean Corpuscular Hemoglobin Concent 34.0 32.0-36.0 g/dL Red Cell Distribution Width 14.6 H 11.8-14.3 % Platelet Count 253 140-450 10^3/uL Mean Platelet Volume 8.0 6.9-10.8 fL Neutrophils (%) (Auto) 57.5 37.0-80.0 % Lymphocytes (%) (Auto) 32.4 10.0-50.0 % Monocytes (%) (Auto) 8.2 0.0-12.0 % Eosinophils (%) (Auto) 1.4 0.0-7.0 % Basophils (%) (Auto) 0.5 0.0-2.0 % Neutrophils # (Auto) 4.0 1.6-8.6 10 ^3/uL Lymphocytes # (Auto) 2.3 0.4-5.4 10 ^3/uL Monocytes # (Auto) 0.6 0-1.3 10 ^3/uL Eosinophils # (Auto) 0.1 0-0.8 10 ^3/uL Basophils # (Auto) 0 0-0.2 10 ^3/uL Nucleated Red Blood Cells 0.1 % Prothrombin Time Pending Prothrombin Time INR Pending Activated Partial Thromboplast Time Pending Sodium Level Pending Potassium Level Pending Chloride Level Pending Carbon Dioxide Level Pending Anion Gap Pending Blood Urea Nitrogen Pending Creatinine Pending Glomerular Filtration Rate Calc Pending BUN/Creatinine Ratio Pending Serum Glucose Pending Calcium Level Pending Troponin I High Sensitivity Pending Time of 1ST Reevaluation: 08:20 Reevaluation 1ST: Unchanged Patient Education/Counseling: Diagnosis, Treatment, Prognosis, Need For Follow Up Family Education/Counseling: No Family Present Comments pt is being admitted for elective procedure by Dr Ahumada. Additional Information Previous visits reviewed: 03/29/25 The following tests were ordered, and results were reviewed by me: EKG, CBC, BMP, TROP, PTPTT I discussed treatment and results with medical personnel and: patient Comprehensive systems review obtained and negative except for what is stated in the HPI. SEPSIS Sepsis Screen Physician Orders Electrocardigram (04/02/25 07:50) Basic Metabolic Panel (04/02/25 07:50) Troponin-I Hs (04/02/25 07:50) PTPTT (04/02/25 07:50) Heplock Iv (04/02/25 ) Vital Signs Date Time Temp Pulse Resp B/P (MAP) Pulse Ox O2 Delivery O2 Flow Rate FiO2 04/02/25 07:56 89 04/02/25 07:53 89 04/02/25 07:47 98.0 102 18 144/76 (98) 95 98.0 04/02/25 07:47 98.0 102 18 144/76 (98) 95 98.0 Laboratory Tests Test 04/02/25 07:57 White Blood Count 7.0 10^3/uL (4.4-10.8) Departure 1 Departure Time of Disposition: 08:19 Impression: Primary Impression: Angina pectoris Disposition: ADMITTED INPATIENT Admit to: [facility] Condition: Stable Discharged With: Self Critical Care Note Critical Care Time?: No Stability Stability form required: No I personally scribed for MACHELLE MERIDA MD ([email or web address]) on 04/02/25 at 07:54. Electronically submitted by Jessica Arango ([email or web address]). I personally scribed for MACHELLE MERIDA MD ([email or web address]) on 04/02/25 at 07:56. Electronically submitted by Jessica Arango ([email or web address]). MACHELLE MERIDA MD Apr 02, 2025 07:54
[2025-04-02 08:11] LABS: Basophils # (auto) 0 10 ^3/uL (0-0.2); Basophils % (auto) 0.5 % (0.0-2.0); Eosinophils # (auto) 0.1 10 ^3/uL (0-0.8); Eosinophils % (auto) 1.4 % (0.0-7.0); Hematocrit 46.4 % (36.0-46.0); Hemoglobin 15.8 g/dL (12.2-16.2); Lymphocytes # (auto) 2.3 10 ^3/uL (0.4-5.4); Lymphocytes % (auto) 32.4 % (10.0-50.0); Mean Corpuscular Hemoglobin 29.5 pg (28.0-32.0); Mean Corpuscular Volume 86.8 fL (80.0-100.0); Monocytes # (auto) 0.6 10 ^3/uL (0-1.3); Monocytes % (auto) 8.2 % (0.0-12.0); Neutrophils % (auto) 57.5 % (37.0-80.0); Nucleated Red Blood Cells % 0.1 %; Platelet Count (auto) 253 10^3/uL (140-450); Red Blood Cells 5.34 10^6/uL (4.0-5.20); Red Cell Distribution Width 14.6 % (11.8-14.3)
[2025-04-02 08:18] LABS: Chloride 106 mmol/L (98-107); Potassium 4.1 mmol/L (3.5-5.1); Sodium 143 mmol/L (136-145)
[2025-04-02 08:19] LABS: Anion Gap 9 (5-15); Carbon Dioxide 28 mmol/L (20-31)
[2025-04-02 08:20] LABS: Calcium 10.2 mg/dL (8.7-10.4)
[2025-04-02 08:25] LABS: BUN/Creatinine Ratio 18.5 (10.0-20.0); Blood Urea Nitrogen 17 mg/dL (9-23)
[2025-04-02 08:26] LABS: INR 0.99 (0.9-1.15); Partial Thromboplastin Time 27.4 SEC (24.5-34.5); Prothrombin Time 10.5 sec (9.3-11.8)
[2025-04-02 08:35] LABS: Glucose 112 mg/dL (74-106)
[2025-04-02 11:47] VITALS: PULSE 106; RESP 20; O2SAT 97
[2025-04-02] MEDS ORDERED: ONDANSETRON HCL 4 MG/2 ML VIAL IV PRN (12:45)
[2025-04-02] MEDS ORDERED: NITROGLYCERIN 0.4 MG SL TAB SL PRN (12:45)
[2025-04-02] MEDS ORDERED: MORPHINE SULFATE 4 MG/ML SYR/VIAL IV PRN (12:45)
[2025-04-02] MEDS ORDERED: HYDROcodone-ACET 5/325MG TAB PO PRN (12:45)
[2025-04-02] MEDS: ACETAMINOPHEN 325 MG TAB PO ONE (13:13)
--- NOTE | 2025-04-02 13:24 | DVHHP2 ---
History of Present Illness History of Present Illness 54-year-old female with no significant past medical history returning after recent AMA due to ongoing chest pain and epigastric pain. patient presented initially 03/30 due to midepigastric pain. According to the patient, on 03/29/2025 she started experiencing a midepigastric pain which was pressure-like in nature with radiation to the back, she notes the pain as 7/10 at the time of onset without any exacerbating or relieving factors. Patient also notes he has been having similar pain intermittently for the past 3 months along with a globus sensation. Denies similar symptoms in the past. Patient also notes that she has been taking ibuprofen daily 800 mg for years due to her headache, she had an endoscopy 3 years ago which at that time was unremarkable. On review of systems patient is complaining of fatigue, shortness of breaths on exertion ongoing for the last 2 weeks and nausea. she is also having midsternal vague CP associated with L arm numbness. These symptoms are occuring now at rest. Review of Systems Allergies: Coded Allergies: Codeine (Verified Allergy, Unknown, 05/05/24) Exam Vital Signs Vital Signs Date Time Temp Pulse Resp B/P (MAP) Pulse Ox O2 Delivery O2 Flow Rate FiO2 04/02/25 12:15 101 18 130/83 (99) 97 04/02/25 11:47 Room Air* 0 21 04/02/25 10:19 98.7 98.7 Exam GEN: Healthy appearing, well-developed, NAD. HEENT: NC/AT; MMM. CV: RRR, no m/r/g. LUNGS: CTAB, no w/r/c. ABD: Soft, NT/ND, NBS, no masses or organomegaly. EXT: skin Warm, well perfused. no rashes. No clubbing, cyanosis, or edema. NEURO: Ambulating with no limitations. No focal deficits. Labs/Xrays Labs Test 04/02/25 07:57 Range/Units White Blood Count 7.0 4.4-10.8 10^3/uL Red Blood Count 5.34 H 4.0-5.20 10^6/uL Hemoglobin 15.8 12.2-16.2 g/dL Hematocrit 46.4 #H 36.0-46.0 % Mean Corpuscular Volume 86.8 80.0-100.0 fL Mean Corpuscular Hemoglobin 29.5 28.0-32.0 pg Mean Corpuscular Hemoglobin Concent 34.0 32.0-36.0 g/dL Red Cell Distribution Width 14.6 H 11.8-14.3 % Platelet Count 253 140-450 10^3/uL Mean Platelet Volume 8.0 6.9-10.8 fL Neutrophils (%) (Auto) 57.5 37.0-80.0 % Lymphocytes (%) (Auto) 32.4 10.0-50.0 % Monocytes (%) (Auto) 8.2 0.0-12.0 % Eosinophils (%) (Auto) 1.4 0.0-7.0 % Basophils (%) (Auto) 0.5 0.0-2.0 % Neutrophils # (Auto) 4.0 1.6-8.6 10 ^3/uL Lymphocytes # (Auto) 2.3 0.4-5.4 10 ^3/uL Monocytes # (Auto) 0.6 0-1.3 10 ^3/uL Eosinophils # (Auto) 0.1 0-0.8 10 ^3/uL Basophils # (Auto) 0 0-0.2 10 ^3/uL Nucleated Red Blood Cells 0.1 % Prothrombin Time 10.5 9.3-11.8 sec Prothrombin Time INR 0.99 0.9-1.15 Activated Partial Thromboplast Time 27.4 24.5-34.5 SEC Sodium Level 143 136-145 mmol/L Potassium Level 4.1 3.5-5.1 mmol/L Chloride Level 106 98-107 mmol/L Carbon Dioxide Level 28 20-31 mmol/L Anion Gap 9 5-15 Blood Urea Nitrogen 17 9-23 mg/dL Creatinine 0.92 0.550-1.02 mg/dL Glomerular Filtration Rate Calc 74 >90 mL/min BUN/Creatinine Ratio 18.5 10.0-20.0 Serum Glucose 112 H 74-106 mg/dL Calcium Level 10.2 8.7-10.4 mg/dL Troponin I High Sensitivity 6 </=34 ng/L Assessment/Plan Assessment/Plan Unstable angina likely r/o ACS Presumptive obstructive CAD Obesity class 2 Dyslipidemia Prediabetes with Hb A1c 5.8% - achs - aspirin, atorvastatin - card consult - npo MN - tele cardiac - npo MN no ppi - no gi phlx need - vincent po dvt ppx - ambulating tele full code Plan discussed with: Patient Date of Service: Apr 02, 2025 Billing Provider: JONAH DOVER MD Common Visit Codes: [id number] INP/OBS CARE (HIGH) Secondary Visit Codes: [id number] CARE PLAN 30 MINUTES JONAH DOVER MD Apr 02, 2025 13:24
[2025-04-02] MEDS ORDERED: hydrALAZINE HCL 20 MG/ML VL IV PRN (15:45)
--- NOTE | 2025-04-02 16:03 | DVHINCON2 ---
Date Seen: Apr 02, [address] Huang Reason for Consultation Chest pain History of Present Illness The patient is a 54-year-old female with past medical history of anemia, newly diagnosed hyperlipidemia, prediabetes, and obesity, who presents with a chief complaint of chest pain. She reports that the chest pain began approximately three months ago and has progressively worsened over the past two weeks. The pain is described as a burning sensation resembling heartburn, radiating to the back and occasionally sharp. Associated symptoms include shortness of breath, left arm pressure, and swelling in the left lower leg. She was admitted to the hospital on 03/30/2025 for further evaluation but left AMA. Today, in the ER, a 12 lead ECG revealing sinus rhythm with borderline T-wave abnormalities. Troponin is negative. A recent echocardiogram showed a preserved left ventricular ejection fraction of 55-60% with mild left ventricular hypertrophy. Past Medical History As stated in HPI Past Surgical History Denies Family History Reviewed, non-contributory to the management of this case. Social History The patient lives at home, denies smoking, alcohol or illicit drugs abuse. Allergies: Coded Allergies: Codeine (Verified Allergy, Unknown, 05/05/24) Home Meds Active Scripts Amoxicillin & Pot Clavulanate (AUGMENTIN TABLET) 875 Mg Tb, 875 MG PO BID for 7 Days, #14 TAB Prov:KAYLA RICE 05/05/24 Prednisone (Prednisone) 20 Mg Tab, 60 MG PO BS, #15 TAB Prov:KAYLA RICE 05/05/24 Current Medications Current Medications Medications (Trade) Dose Ordered Sig/Lucila Route PRN Reason Start Time Stop Time Status Last Admin Acetaminophen/ Hydrocodone Bitart ([place] 5/325MG Tab) 1 tab Q4HP PRN PO MODERATE PAIN (4-6 PAIN SCALE) 04/02/25 12:45 UNV Ondansetron HCl (Zofran) 4 mg Q4HP PRN IV NAUSEA / VOMITING 04/02/25 12:45 Enoxaparin Sodium (Lovenox) 40 mg DAILY SC 04/03/25 10:00 Acetaminophen (Tylenol Tablet) 650 mg Q6HP PRN PO PAIN SCALE 1-3 OR TEMP>100.4 04/02/25 12:45 Nitroglycerin (Ntrostat Sublingual) 0.4 mg Q5MINP PRN SL FOR CHEST PAIN 04/02/25 12:45 Morphine Sulfate 2 mg Q30M PRN IV FOR CHEST PAIN 04/02/25 12:45 UNV Aspirin 81 mg DAILY PO 04/03/25 10:00 Atorvastatin Calcium (Lipitor) 40 mg HS PO 04/02/25 22:00 Sodium Chloride 1,000 ml @ 75 mls/hr [id number] IV 04/02/25 15:45 UNV Hydralazine HCl (Apresoline Injection) 10 mg Q6HP PRN IV SBP>150 04/02/25 15:45 UNV Review of Systems Constitutional: No symptom reported Ears, Nose, & Throat: No symptom reported Eyes: No symptom reported Neurological: No symptoms reported Pulmonary/Respiratory: No symptom reported Cardiovascular: Positive for shortness of breath, denies cough or wheezing Gastrointestinal: Positive for heartburn like sensation, denies nausea, vomiting, or abdominal pain Genitourinary: No symptom reported Musculoskeletal: Positive for left lower extremity swelling, denies trauma or joint pain Skin: No symptom reported Psychiatric: No symptom reported Endocrine: No symptom reported Hemotologic/Lymphatic: No symptom reported Vital Signs Vital Signs Date Time Temp Pulse Resp B/P (MAP) Pulse Ox O2 Delivery O2 Flow Rate FiO2 04/02/25 15:13 98.1 89 17 145/91 (109) 95 98.1 04/02/25 11:47 Room Air* 0 21 Physical Exam INITIAL VITAL SIGNS: Reviewed by me GENERAL: Alert and interactive. No acute distress. HEAD: Head is normocephalic and atraumatic. EYES: EOMI, PERRL. No scleral icterus. No conjunctival injection. ENT: Moist mucous membranes. NECK: Supple, No masses, Full range of motion. RESPIRATORY: No tachypnea. Clear breath sounds bilaterally. No wheezing, rales, rhonchi. CV: Regular rate and rhythm, no murmurs rubs or gallops. No peripheral cyanosis. No edema. GI/: Active bowel sounds, soft, nondistended, nontender. No guarding. No rebound. No masses. No CVA tenderness. INTEGUMENTARY: Warm and dry. No obvious rashes. NEUROLOGIC: Alert and oriented. Face is symmetric. Speech is normal. Moves all extremities equally. Labs/Diagnostic Data Labs Test 04/02/25 07:57 Range/Units White Blood Count 7.0 4.4-10.8 10^3/uL Red Blood Count 5.34 H 4.0-5.20 10^6/uL Hemoglobin 15.8 12.2-16.2 g/dL Hematocrit 46.4 #H 36.0-46.0 % Mean Corpuscular Volume 86.8 80.0-100.0 fL Mean Corpuscular Hemoglobin 29.5 28.0-32.0 pg Mean Corpuscular Hemoglobin Concent 34.0 32.0-36.0 g/dL Red Cell Distribution Width 14.6 H 11.8-14.3 % Platelet Count 253 140-450 10^3/uL Mean Platelet Volume 8.0 6.9-10.8 fL Neutrophils (%) (Auto) 57.5 37.0-80.0 % Lymphocytes (%) (Auto) 32.4 10.0-50.0 % Monocytes (%) (Auto) 8.2 0.0-12.0 % Eosinophils (%) (Auto) 1.4 0.0-7.0 % Basophils (%) (Auto) 0.5 0.0-2.0 % Neutrophils # (Auto) 4.0 1.6-8.6 10 ^3/uL Lymphocytes # (Auto) 2.3 0.4-5.4 10 ^3/uL Monocytes # (Auto) 0.6 0-1.3 10 ^3/uL Eosinophils # (Auto) 0.1 0-0.8 10 ^3/uL Basophils # (Auto) 0 0-0.2 10 ^3/uL Nucleated Red Blood Cells 0.1 % Prothrombin Time 10.5 9.3-11.8 sec Prothrombin Time INR 0.99 0.9-1.15 Activated Partial Thromboplast Time 27.4 24.5-34.5 SEC Sodium Level 143 136-145 mmol/L Potassium Level 4.1 3.5-5.1 mmol/L Chloride Level 106 98-107 mmol/L Carbon Dioxide Level 28 20-31 mmol/L Anion Gap 9 5-15 Blood Urea Nitrogen 17 9-23 mg/dL Creatinine 0.92 0.550-1.02 mg/dL Glomerular Filtration Rate Calc 74 >90 mL/min BUN/Creatinine Ratio 18.5 10.0-20.0 Serum Glucose 112 H 74-106 mg/dL Calcium Level 10.2 8.7-10.4 mg/dL Troponin I High Sensitivity 6 </=34 ng/L ORDERING PHYSICIAN: KEVIN MONTES RESIDENT PROCEDURE(s): CWMM - CARDIOLITE MULTIPLE REASON: chest pain ORDER NUMBER(s): [id number], ACCESSION NUMBER(s): [id number] APPROVED REPORT Exam: Nuclear Stress Test BMI: 0 Stress Test Details Stress Test: Pharmacologic stress testing performed using 0.4 mg of regadenoson per 5 mL given IV over 10 seconds. HR Resting HR: 86 bpm Max Heart Rate (APMHR): 166 bpm Max HR Achieved: 107 bpm Target HR (85% APMHR): 141 bpm % of APMHR: 64 Recovery HR: 92 bpm BP Resting BP: 138/92 mmHg Recovery BP: 122/91 mmHg ECG Resting ECG: Sinus Rhythm Clinical Reason for Termination: Completed protocol Nurse Comments Recieved pt. from [employer]. A/Ox4 on RA. Connected to ekg monitor tech, VS stable. PIV flushes well. Reviewed POC. Pt. verbalized understanding of procedure including risks and side effects, agrees for stress testing. Lexiscan stress test performed per protocol. [employer] tech administered Cardiolite. Pt. tolerated well. Pt. stable, no change on exam. VS returned to baseline. Transferred to [employer] via wheelchair w/ tech. Stress ECG Conclusion Normal myocardial perfusion study. MS EXAM: Myocardial Perfusion REST/STRESS Imaging Protocol: Rest Tc-99m/Stress Tc-99m 1 day Resting Data Rest SPECT myocardial perfusion imaging was performed in supine position 60 minutes following the intravenous injection of 12.9 mCi of Tc-99m Sestamibi. Time of rest injection: 12:15 Date: 03/30/2025 Time of rest imagin:15 Date: 03/30/2025 Administration Route: IV Administration Site: Right Hand Pharmacologic Stress Pharmacologic stress test was performed by injecting Regadenoson 0.4 mg IV push followed by the intravenous injection of 32.0 mCi of Tc-99m Sestamibi. Time of stress injection: 13:43 Date: 03/30/2025 Time of stress imagin:43 Date: 03/30/2025 Administration Route: IV Administration Site: Right Arm Gated Stress SPECT was performed 60 minutes after stress injection. The images were gated to evaluate regional wall motion and calculate left ventricular ejection fraction. Stress only was performed in the Supine position. Nuclear Conclusion ECG Findings: negative for ischemia Clinical Findings: negative for ischemia Nuclear Findings: negative for ischemia Left Ventricular Function: normal Risk Study: low Normal myocardial perfusion study. Assessment Chest pain to rule out ACS Essential hypertension Hyperlipidemia Prediabetes History of anemia Plan/Recommendation (Dr. Gomez ): Given the chronic and progressive nature of her symptoms along with intermediate cardiac risk heart score 4 and WILLIAM score 3, she is scheduled for left heart catheterization on to further evaluate for underlying coronary artery disease. The patient was counseled regarding the upcoming left heart catheterization scheduled for 04/03/2025. The purpose of the procedure, including its role in evaluating for obstructive coronary artery disease given her ongoing chest pain and intermediate risk profile, (HEART score 4, TMI score 3) was explained. The benefits of the procedures such as obtaining definitive diagnostic information, guiding further management, and the potentially identifying lesion amenable to intervention were reviewed. Risks, including bleeding, vascular complication, arrhythmias, contrast induced nephropathy, allergic reaction, and rarely myocardial infarction or stroke, were also discussed. The patient demonstrated understanding and provided verbal consent to proceed This medical document was created using an electronic medical record system with voice recognition software and computerized dictation system. Although this document has been carefully reviewed, there might still be some phonetic and typographical errors. Occasional wrong-word or ``sound-alike substitutions may have occurred due to the inherent limitations of voice recognition software. These areas are purely typographical due to imperfections of the software programs and do not reflect any compromise in the patient's medical care. Please read the chart carefully and recognize, using context, where these substitutions have occurred. Plan discussed with: Patient Plan discussed with: Patient, Spouse NYHA Physical activity limitations: NA Date of Service: Apr 02, 2025 Billing Provider: RYAN GOMEZ Sr., MD Cardiology Common Codes: CONSULT ONLY Cardiology Consultation Codes: 40451-GFOCANRDY CONSULT <45MIN ALONDRA HUERTAS BRUSHING MACHINE OPERATOR Apr 02, 2025 16:03
[2025-04-02] MEDS: SODIUM CHLORIDE 0.9% 1,000 ML IV SCH (17:05)
[2025-04-02 18:42] VITALS: BP 141/93; PULSE 93; RESP 16; TEMP 97.4; O2SAT 97
[2025-04-02 18:51] VITALS: PULSE 83; RESP 16; O2SAT 97
[2025-04-02 20:00] VITALS: PULSE 88; PULSE 91; RESP 14
[2025-04-02 21:00] VITALS: BP 129/88; PULSE 83; RESP 16; TEMP 98; O2SAT 93
[2025-04-02] MEDS: ATORVASTATIN 20 MG TAB PO SCH (21:03)
[2025-04-02] MEDS: ACETAMINOPHEN 325 MG TAB PO PRN (21:09)
[2025-04-02 22:25] VITALS: BP 129/88; PULSE 83; RESP 16; TEMP 98; O2SAT 97
--- NOTE | 2025-04-02 23:40 | DVHINCON2 ---
Date Seen: Apr 02, [address] Huang Reason for Consultation Chest pain History of Present Illness This is a 54-year-old female with a past medical history of anemia, newly diagnosed hyperlipidemia, prediabetes, and obesity, who presents to the ED with a complaint of chest pain. Patient reports that the chest pain began approximately three months ago and has progressively worsened over the past two weeks. The pain is described as a burning sensation resembling heartburn, radiating to the back and occasionally sharp. Associated symptoms include shortness of breath, left arm pressure, and swelling in the left lower leg. Patient was recently admitted to [facility] on 03/30/2025 for further evaluation but left AMA. Today, in the ER, a 12 lead ECG revealing sinus rhythm with borderline T-wave abnormalities. Troponin is negative. A recent echocardiogram showed a preserved left ventricular ejection fraction of 55-60% with mild left ventricular hypertrophy. Patient was admitted to the hospital. I am asked to consult on this patient. Past Medical History As stated in HPI Past Surgical History Denies Allergies: Coded Allergies: Codeine (Verified Allergy, Unknown, 05/05/24) Home Meds Active Scripts Amoxicillin & Pot Clavulanate (AUGMENTIN TABLET) 875 Mg Tb, 875 MG PO BID for 7 Days, #14 TAB Prov:KAYLA RICE 05/05/24 Prednisone (Prednisone) 20 Mg Tab, 60 MG PO BS, #15 TAB Prov:KAYLA RICE 05/05/24 Current Medications Current Medications Medications (Trade) Dose Ordered Sig/Lucila Route PRN Reason Start Time Stop Time Status Last Admin Acetaminophen/ Hydrocodone Bitart ([place] 5/325MG Tab) 1 tab Q4HP PRN PO MODERATE PAIN (4-6 PAIN SCALE) 04/02/25 12:45 Ondansetron HCl (Zofran) 4 mg Q4HP PRN IV NAUSEA / VOMITING 04/02/25 12:45 Enoxaparin Sodium (Lovenox) 40 mg DAILY SC 04/03/25 10:00 Future hold Acetaminophen (Tylenol Tablet) 650 mg Q6HP PRN PO PAIN SCALE 1-3 OR TEMP>100.4 04/02/25 12:45 Nitroglycerin (Ntrostat Sublingual) 0.4 mg Q5MINP PRN SL FOR CHEST PAIN 04/02/25 12:45 Morphine Sulfate 2 mg Q30M PRN IV FOR CHEST PAIN 04/02/25 12:45 Aspirin 81 mg DAILY PO 04/03/25 10:00 Atorvastatin Calcium (Lipitor) 40 mg HS PO 04/02/25 22:00 Sodium Chloride 1,000 ml @ 75 mls/hr [id number] IV 04/02/25 15:45 04/02/25 17:05 Hydralazine HCl (Apresoline Injection) 10 mg Q6HP PRN IV SBP>150 04/02/25 15:45 Review of Systems Constitutional: No symptom reported Ears, Nose, & Throat: No symptom reported Eyes: No symptom reported Neurological: No symptoms reported Pulmonary/Respiratory: No symptom reported Cardiovascular: Positive for shortness of breath, denies cough or wheezing Gastrointestinal: Positive for heartburn like sensation, denies nausea, vomiting, or abdominal pain Genitourinary: No symptom reported Musculoskeletal: Positive for left lower extremity swelling, denies trauma or joint pain Skin: No symptom reported Psychiatric: No symptom reported Endocrine: No symptom reported Hemotologic/Lymphatic: No symptom reported Vital Signs Vital Signs Date Time Temp Pulse Resp B/P (MAP) Pulse Ox O2 Delivery O2 Flow Rate FiO2 04/02/25 18:51 83 16 97 Room Air* 0 21 04/02/25 18:42 97.4 141/93 (109) 97.4 Physical Exam GENERAL: Alert and oriented x 3. No acute distress. EYES: PERRL, EOMI. Anicteric. HENT: Moist mucous membranes. LUNGS: Clear to auscultation bilaterally. CARDIOVASCULAR: Regular rate and rhythm. ABDOMEN: Soft, nontender and nondistended. EXTREMITIES: No edema. NEUROLOGIC: No focal neurological deficits. SKIN: Warm, dry. Labs/Diagnostic Data Labs Test 04/02/25 07:57 Range/Units White Blood Count 7.0 4.4-10.8 10^3/uL Red Blood Count 5.34 H 4.0-5.20 10^6/uL Hemoglobin 15.8 12.2-16.2 g/dL Hematocrit 46.4 #H 36.0-46.0 % Mean Corpuscular Volume 86.8 80.0-100.0 fL Mean Corpuscular Hemoglobin 29.5 28.0-32.0 pg Mean Corpuscular Hemoglobin Concent 34.0 32.0-36.0 g/dL Red Cell Distribution Width 14.6 H 11.8-14.3 % Platelet Count 253 140-450 10^3/uL Mean Platelet Volume 8.0 6.9-10.8 fL Neutrophils (%) (Auto) 57.5 37.0-80.0 % Lymphocytes (%) (Auto) 32.4 10.0-50.0 % Monocytes (%) (Auto) 8.2 0.0-12.0 % Eosinophils (%) (Auto) 1.4 0.0-7.0 % Basophils (%) (Auto) 0.5 0.0-2.0 % Neutrophils # (Auto) 4.0 1.6-8.6 10 ^3/uL Lymphocytes # (Auto) 2.3 0.4-5.4 10 ^3/uL Monocytes # (Auto) 0.6 0-1.3 10 ^3/uL Eosinophils # (Auto) 0.1 0-0.8 10 ^3/uL Basophils # (Auto) 0 0-0.2 10 ^3/uL Nucleated Red Blood Cells 0.1 % Prothrombin Time 10.5 9.3-11.8 sec Prothrombin Time INR 0.99 0.9-1.15 Activated Partial Thromboplast Time 27.4 24.5-34.5 SEC Sodium Level 143 136-145 mmol/L Potassium Level 4.1 3.5-5.1 mmol/L Chloride Level 106 98-107 mmol/L Carbon Dioxide Level 28 20-31 mmol/L Anion Gap 9 5-15 Blood Urea Nitrogen 17 9-23 mg/dL Creatinine 0.92 0.550-1.02 mg/dL Glomerular Filtration Rate Calc 74 >90 mL/min BUN/Creatinine Ratio 18.5 10.0-20.0 Serum Glucose 112 H 74-106 mg/dL Calcium Level 10.2 8.7-10.4 mg/dL Troponin I High Sensitivity 6 </=34 ng/L Assessment Chest pain to rule out ACS. Essential hypertension. Hyperlipidemia. Prediabetes. History of anemia. Plan/Recommendation I agree with your ongoing assessment and care of plan. Patient has been seen by Milady Lockhart NP on my behalf, her and I discussed the plan with the patient. Given the chronic and progressive nature of her symptoms along with intermediate cardiac risk heart score 4 and WILLIAM score 3, she is scheduled for left heart catheterization on six/23/25 to further evaluate for underlying coronary artery disease. The patient was counseled regarding the upcoming left heart catheterization scheduled for 04/03/2025. The purpose of the procedure, including its role in evaluating for obstructive coronary artery disease given her ongoing chest pain and intermediate risk profile, (HEART score 4, TMI score 3) was explained. The benefits of the procedures such as obtaining definitive diagnostic information, guiding further management, and the potentially identifying lesion amenable to intervention were reviewed. Risks, including bleeding, vascular complication, arrhythmias, contrast induced nephropathy, allergic reaction, and rarely myocardial infarction or stroke, were also discussed. The patient demonstrated understanding and provided verbal consent to proceed Additional plan as per the hospital course. Plan discussed with: Patient NYHA Physical activity limitations: NA Date of Service: Apr 02, 2025 Billing Provider: PATEL CASTRO MD Cardiology Common Codes: 40708-MFAQHUV INP/OBS CARE (High) Cardiology Consultation Codes: 77183-[id number] CONSULT <45MIN PATEL CASTRO MD Apr 02, 2025 20:00
[2025-04-03] VITALS (13 sets, daily range): BP systolic 109–134; BP diastolic 71–89; PULSE 73–92; RESP 16–18; TEMP 97.7–98.4; O2SAT 93–97
[2025-04-03 06:33] LABS: Basophils # (auto) 0 10 ^3/uL (0-0.2); Basophils % (auto) 0.4 % (0.0-2.0); Eosinophils # (auto) 0.1 10 ^3/uL (0-0.8); Eosinophils % (auto) 1.8 % (0.0-7.0); Hematocrit 43.2 % (36.0-46.0); Hemoglobin 14.7 g/dL (12.2-16.2); Lymphocytes # (auto) 2.5 10 ^3/uL (0.4-5.4); Lymphocytes % (auto) 33.4 % (10.0-50.0); Mean Corpuscular Hemoglobin 29.5 pg (28.0-32.0); Mean Corpuscular Hgb Conc. 34.1 g/dL (32.0-36.0); Mean Corpuscular Volume 86.6 fL (80.0-100.0); Monocytes # (auto) 0.6 10 ^3/uL (0-1.3); Monocytes % (auto) 8.5 % (0.0-12.0); Neutrophils # (auto) 4.2 10 ^3/uL (1.6-8.6); Neutrophils % (auto) 55.9 % (37.0-80.0); Nucleated Red Blood Cells % 0.1 %; Platelet Count (auto) 219 10^3/uL (140-450); Red Blood Cells 4.99 10^6/uL (4.0-5.20); Red Cell Distribution Width 14.2 % (11.8-14.3); White Blood Cell 7.6 10^3/uL (4.4-10.8)
[2025-04-03 06:47] LABS: Alanine Aminotransferase 35 U/L (7-40); Albumin 4.2 g/dL (3.2-4.8); Anion Gap 11 (5-15); Aspartate Aminotransferase 31 U/L (<34); Bilirubin, Total 0.6 mg/dL (0.2-1.0); Blood Urea Nitrogen 18 mg/dL (9-23); Calcium 9.4 mg/dL (8.7-10.4); Carbon Dioxide 24 mmol/L (20-31); Glucose 104 mg/dL (74-106); Potassium 3.8 mmol/L (3.5-5.1); Sodium 144 mmol/L (136-145)
[2025-04-03 06:48] LABS: Alkaline Phosphatase 123 U/L (46-116); Chloride 109 mmol/L (98-107)
--- NOTE | 2025-04-03 08:08 | DVH ---
EXAM: XR Chest, 1 View CLINICAL INDICATION: Pain TECHNIQUE: Frontal view of the chest. COMPARISON: No relevant prior studies available. FINDINGS: LUNGS AND PLEURAL SPACES: Unremarkable. No consolidation. No pneumothorax. HEART: Unremarkable. No cardiomegaly. MEDIASTINUM: Unremarkable. Normal mediastinal contour. BONES/JOINTS: Unremarkable. No acute fracture. IMPRESSION: No acute cardiopulmonary process.
[2025-04-03] MEDS: ASPirin 81 mg TAB PO SCH (10:00)
--- NOTE | 2025-04-03 10:26 | ECG ---
[facility] Test Date: 2025-04-02 Test Time: 07:53:37 Pat Name: TOM HOFFMAN Department: ER Room: 0297T A Gender: F [employer]: DR VILLALOBOS: 1970 Requested By: MACHELLE MERIDA Order Number: [id number] Reading MD: Jose Daniel Lentz Measurements Intervals [place] Rate: 89 P: 50 VA: 123 QRS: 55 QRSD: 90 T: -20 QT: 363 QTc: 442 Interpretive Statements Sinus rhythm Borderline T abnormalities, diffuse leads Electronically Signed On 04-04-2025 22:45:43 PDT by Jose Daniel Lentz Please click the below link to view image of tracing.
[2025-04-03] MEDS: IODIXANOL 320MG/ML 100ML BTL IV ONE (12:01)
[2025-04-03] MEDS: fentaNYL CITRATE 100 MCG/2 ML VL ONE (12:07)
[2025-04-03] MEDS: HEPARIN SODIUM (PORCINE) 5000 UNITS/ML 1ML VIAL ONE (12:07)
[2025-04-03] MEDS: VERAPAMIL 2.5MG/ML INJ 2ML VIAL IV ONE (12:07)
[2025-04-03] MEDS: LIDOCAINE 2%HCL (LOCAL ANESTH.) INJ 20ML MDV ONE (12:08)
[2025-04-03] MEDS: MIDAZOLAM HCL 2MG/2ML 2ml VIAL (1mg/ml) ONE (12:08)
--- NOTE | 2025-04-03 13:18 | DVHOP2 ---
Operative Report - 2 Report Details Date: 04/03/25 Preop Diagnosis: CAD Postop Diagnosis: Normal coronary arteries. Normal ejection fraction. Normal end-diastolic pressures. Surgeon: Ryan Lentz MD Anesthesiologist: Conscious sedation Anesthesia: Mac, Local Consent: The patient was informed of the risks and benefits of the procedure. These include but are not limited to complications of anesthesia, postoperative infection, incomplete relief of symptoms, recurrence of symptoms, damage to blood vessels, nerves and tendons, deep venous thrombosis, pulmonary embolism and possible need for repeat surgery in the future. Complications: No complications Findings: Normal coronaries Indications for Surgery: Chest pain. Abnormal stress test Name of Procedure Performed Left heart catheterization. Bilateral cine coronary angiography. Left ventriculography. Procedure Details Procedure Details: Prior local anesthesia with 2% lidocaine to the right wrist and full informed consent obtained patient was prepped and draped in usual fashion and under fluoroscopic and ultrasound guidance we obtained access into the right radial artery through which a six [place] sheath was placed followed by a multipurpose catheter to evaluate both right and left coronary ostia and for ventriculography. No complications. Hemodynamics: Aortic blood pressure was 150/90. End-diastolic pressure was 12 without gradient across the aortic valve on pullback. Coronary anatomy: The RCA is a large vessel it is normal in its proximal mid and distal segments. PDA and posterolateral branches are normal. This is a nondominant vessel. Left main is large and normal. Left anterior descending is large and normal with two diagonals free of significant disease. The circumflex is a large vessel with two marginals free of significant disease Ventriculography in the LINN projection shows an EF of 55% Impression: Normal left ventricular end-diastolic pressure at rest with normal ejection fraction. No CAD. Recommendations: Medical therapy is warranted. Risk factor modification to continue. Condition Good Disposition Still a Patient Date of Service: Apr 03, 2025 Billing Provider: RYAN LENTZ Sr., MD Cardiology Common Codes: 56470-[id number] INP/OBS CARE (High) Cardiology Procedure Codes: 52283-QKTZ HEART CATH W/INTRA INJ RYAN LENTZ Sr., MD Apr 03, 2025 13:18
--- NOTE | 2025-04-03 16:34 | DVHPN2 ---
Subjective Chest pain is still minimally present. Reviewed: H&P Changes from previous H/P or p: No Changes General: Per HPI Objective Vitals Vital Signs Date Time Temp Pulse Resp B/P (MAP) Pulse Ox O2 Delivery O2 Flow Rate FiO2 04/03/25 14:40 97.8 87 17 134/89 (104) 95 97.8 04/03/25 08:00 Room Air* 0 21 Intake/Output Intake and Output 04/03/25 07:00 Intake Total 1215 ml Output Total 500 ml Balance 715 ml Intake Oral 740 ml IV Total 75 ml Tube Feeding 400 ml Output Urine Total 500 ml # Bowel Movements 1 Exam GEN: Healthy appearing, well-developed, NAD. HEENT: NC/AT; MMM. CV: RRR, no m/r/g. LUNGS: CTAB, no w/r/c. ABD: Soft, NT/ND, NBS, no masses or organomegaly. EXT: skin Warm, well perfused. no rashes. No clubbing, cyanosis, or edema. NEURO: Ambulating with no limitations. No focal deficits. Medications Current Medications Medications Dose Ordered Sig/Lucila Route Start Time Stop Time Status Last Admin Dose Admin Acetaminophen/ Hydrocodone Bitart 1 tab Q4HP PRN PO 04/02/25 12:45 Ondansetron HCl 4 mg Q4HP PRN IV 04/02/25 12:45 Enoxaparin Sodium 40 mg DAILY SC 04/03/25 10:00 Hold Acetaminophen 650 mg Q6HP PRN PO 04/02/25 12:45 04/03/25 16:15 650 MG Nitroglycerin 0.4 mg Q5MINP PRN SL 04/02/25 12:45 Morphine Sulfate 2 mg Q30M PRN IV 04/02/25 12:45 Aspirin 81 mg DAILY PO 04/03/25 10:00 Atorvastatin Calcium 40 mg HS PO 04/02/25 22:00 04/02/25 21:03 40 MG Sodium Chloride 1,000 ml @ 75 mls/hr [id number] IV 04/02/25 15:45 04/03/25 05:54 75 MLS/HR Hydralazine HCl 10 mg Q6HP PRN IV 04/02/25 15:45 Laboratory Results Laboratory Tests 04/03/25 04:49 Chemistry Test 04/03/25 04:49 Albumin 4.2 g/dL (3.2-4.8) Calcium Level 9.4 mg/dL (8.7-10.4) Total Protein 7.0 g/dL (5.7-8.2) LFT Test 04/03/25 04:49 Alanine Aminotransferase (ALT) 35 U/L (7-40) Alkaline Phosphatase 123 U/L (46-116) H Aspartate Amino Transferase (AST) 31 U/L (<34) Total Bilirubin 0.6 mg/dL (0.2-1.0) Microbiology Microbiology Date/Time Source Procedure Growth Status 04/02/25 22:15 Nose MRSA Screen - Final Complete Labs and/or images reviewed: Labs reviewed by me, Image(s) reviewed by me Assessment/Plan Assessment/Plan 04/03- patient is scheduled for left heart catheterization today we will follow up with Cardiology thereafter. If angiogram clean we will explore other options MSK versus GERD/PPI need. Unstable angina likely r/o ACS Presumptive obstructive CAD Obesity class 2 Dyslipidemia Prediabetes with Hb A1c 5.8% - achs - aspirin, atorvastatin - card consult- C 04/03 - ppi, ibuprofen if LHC neg. - npo - tele cardiac - npo [place] no ppi - no gi phlx need - vincent po dvt ppx - ambulating tele full code Plan discussed with: Patient Date of Service: Apr 03, 2025 Billing Provider: JONAH DOVER MD Common Visit Codes: 04100-[id number] INP/OBS CARE(HIGH) JONAH DOVER MD Apr 03, 2025 16:34
[2025-04-03] MEDS: PANTOPRAZOLE 40 MG/10 ML VIAL INJ IV ONE (18:48)
[2025-04-03] MEDS: IBUPROFEN 600 MG TAB PO SCH (18:48)
[2025-04-03] MEDS: SODIUM CHLORIDE 0.9% 1,000 ML IV ONE (18:50)
--- NOTE | 2025-04-03 23:05 | DVHPN2 ---
Progress Note - Dictate Date Seen: Apr 03, 2025 Medical Necessity Reason Pt with a Central, PICC or Fol: No Subjective Patient was seen and evaluated in follow up. Patient underwent left heart catheterization, bilateral cine coronary angiography, left ventriculography with Dr. Lentz. He is advised for risk factor modification to continue. Telemetry reviewed. vital signs Vital Sign Date Time Temp Pulse Resp B/P (MAP) Pulse Ox O2 Delivery O2 Flow Rate FiO2 04/03/25 21:00 98.4 78 18 110/71 (84) 94 98.4 04/03/25 08:00 Room Air* 0 21 Total Intake and Output 04/02/25 04/02/25 04/03/25 15:00 23:00 07:00 Intake Total 315 ml 900 ml Output Total 500 ml Balance 315 ml 400 ml medications Current Medications Medications Dose Ordered Sig/Lucila Route Start Time Stop Time Status Last Admin Dose Admin Acetaminophen/ Hydrocodone Bitart 1 tab Q4HP PRN PO 04/02/25 12:45 Ondansetron HCl 4 mg Q4HP PRN IV 04/02/25 12:45 Enoxaparin Sodium 40 mg DAILY SC 04/03/25 10:00 Hold Acetaminophen 650 mg Q6HP PRN PO 04/02/25 12:45 04/03/25 16:15 650 MG Nitroglycerin 0.4 mg Q5MINP PRN SL 04/02/25 12:45 Morphine Sulfate 2 mg Q30M PRN IV 04/02/25 12:45 Aspirin 81 mg DAILY PO 04/03/25 10:00 Atorvastatin Calcium 40 mg HS PO 04/02/25 22:00 04/03/25 22:08 40 MG Hydralazine HCl 10 mg Q6HP PRN IV 04/02/25 15:45 Ibuprofen 600 mg BID PO 04/03/25 17:00 04/05/25 16:59 04/03/25 18:48 600 MG Pantoprazole Sodium 40 mg DAILY IV 04/04/25 10:00 objective GENERAL: Alert and oriented x 3. No acute distress. EYES: PERRL, EOMI. Anicteric. HENT: Moist mucous membranes. LUNGS: Clear to auscultation bilaterally. CARDIOVASCULAR: Regular rate and rhythm. ABDOMEN: Soft, nontender and nondistended. EXTREMITIES: No edema. NEUROLOGIC: No focal neurological deficits. SKIN: Warm, dry. laboratory and microbiology Laboratory Tests 04/03/25 04:49 Test 04/03/25 04:49 Range/Units Serum Glucose 104 74-106 mg/dL Problem List Chest pain. Essential hypertension. Hyperlipidemia. Prediabetes. History of anemia. Assessment/Plan Continued all current supportive medical care. Morphine and [place] for pain. Aspirin Lipitor. IV Hydralazine for SBP >150. Nitro SL. GI prophylactics. Additional plan as per the hospital course. Plan discussed with: Patient PATEL CASTRO MD Apr 03, 2025 23:05
[2025-04-04 05:00] VITALS: BP 141/89; PULSE 75; RESP 18; TEMP 97.4; O2SAT 96
[2025-04-04 06:34] LABS: Alanine Aminotransferase 36 U/L (7-40); Albumin 4.2 g/dL (3.2-4.8); Anion Gap 12 (5-15); BUN/Creatinine Ratio 23.3 (10.0-20.0); Bilirubin, Total 0.6 mg/dL (0.2-1.0); Blood Urea Nitrogen 17 mg/dL (9-23); Calcium 9.7 mg/dL (8.7-10.4); Carbon Dioxide 23 mmol/L (20-31); Glucose 96 mg/dL (74-106); Potassium 3.8 mmol/L (3.5-5.1); Sodium 144 mmol/L (136-145); Total Protein 7.1 g/dL (5.7-8.2)
[2025-04-04 06:50] LABS: Alkaline Phosphatase 126 U/L (46-116); Aspartate Aminotransferase 35 U/L (<34); Chloride 109 mmol/L (98-107)
[2025-04-04 08:00] VITALS: PULSE 86; RESP 18
[2025-04-04 09:00] VITALS: BP 131/69; PULSE 93; RESP 19; TEMP 98.5; O2SAT 93
[2025-04-04] MEDS: BACLOFEN 10 MG TAB PO ONE (09:45)
[2025-04-04] MEDS: PANTOPRAZOLE 40 MG/10 ML VIAL INJ IV SCH (10:00)
[2025-04-04] MEDS: ENOXAPARIN SOD 40 MG/0.4 ML SYRINGE SC SCH (10:00)
[2025-04-04] MEDS ORDERED: PANT40TA2 PO (12:09)
[2025-04-04] MEDS ORDERED: ASPI1TAB19 PO (12:09)
[2025-04-04] MEDS ORDERED: BACL10TA PO (12:09)
[2025-04-04] MEDS ORDERED: ATOR-507 PO (12:09)
--- NOTE | 2025-04-04 12:11 | DVHDS2 ---
Discharge Summary Date of Admission Apr 02, 2025 at 12:35 Date of Discharge: Apr 04, 2025 Labs/Diagnostic Data: Laboratory Results Test 04/04/25 05:10 04/03/25 04:49 04/02/25 07:57 Sodium Level 144 mmol/L (136-145) Potassium Level 3.8 mmol/L (3.5-5.1) Chloride Level 109 mmol/L (98-107) Carbon Dioxide Level 23 mmol/L (20-31) Anion Gap 12 (5-15) Blood Urea Nitrogen 17 mg/dL (9-23) Creatinine 0.73 mg/dL (0.550-1.02) Glomerular Filtration Rate Calc 98 mL/min (>90) BUN/Creatinine Ratio 23.3 (10.0-20.0) Serum Glucose 96 mg/dL (74-106) Calcium Level 9.7 mg/dL (8.7-10.4) Total Bilirubin 0.6 mg/dL (0.2-1.0) Aspartate Amino Transferase (AST) 35 U/L (<34) Alanine Aminotransferase (ALT) 36 U/L (7-40) Alkaline Phosphatase 126 U/L (46-116) Total Protein 7.1 g/dL (5.7-8.2) Albumin 4.2 g/dL (3.2-4.8) White Blood Count 7.6 10^3/uL (4.4-10.8) Red Blood Count 4.99 10^6/uL (4.0-5.20) Hemoglobin 14.7 g/dL (12.2-16.2) Hematocrit 43.2 % (36.0-46.0) Mean Corpuscular Volume 86.6 fL (80.0-100.0) Mean Corpuscular Hemoglobin 29.5 pg (28.0-32.0) Mean Corpuscular Hemoglobin Concent 34.1 g/dL (32.0-36.0) Red Cell Distribution Width 14.2 % (11.8-14.3) Platelet Count 219 10^3/uL (140-450) Mean Platelet Volume 8.5 fL (6.9-10.8) Neutrophils (%) (Auto) 55.9 % (37.0-80.0) Lymphocytes (%) (Auto) 33.4 % (10.0-50.0) Monocytes (%) (Auto) 8.5 % (0.0-12.0) Eosinophils (%) (Auto) 1.8 % (0.0-7.0) Basophils (%) (Auto) 0.4 % (0.0-2.0) Neutrophils # (Auto) 4.2 10 ^3/uL (1.6-8.6) Lymphocytes # (Auto) 2.5 10 ^3/uL (0.4-5.4) Monocytes # (Auto) 0.6 10 ^3/uL (0-1.3) Eosinophils # (Auto) 0.1 10 ^3/uL (0-0.8) Basophils # (Auto) 0 10 ^3/uL (0-0.2) Nucleated Red Blood Cells 0.1 % Prothrombin Time 10.5 sec (9.3-11.8) Prothrombin Time INR 0.99 (0.9-1.15) Activated Partial Thromboplast Time 27.4 SEC (24.5-34.5) Troponin I High Sensitivity 6 ng/L (</=34) Other Laboratory Tests 04/04/25 05:10 04/03/25 04:49 Brief Hx & Hospital Course: 54-year-old female with no significant past medical history returning after recent AMA due to ongoing chest pain and epigastric pain. patient presented initially 03/30 due to midepigastric pain. According to the patient, on 03/29/2025 she started experiencing a midepigastric pain which was pressure-like in nature with radiation to the back, she notes the pain as 7/10 at the time of onset without any exacerbating or relieving factors. Patient also notes he has been having similar pain intermittently for the past 3 months along with a globus sensation. Denies similar symptoms in the past. Patient also notes that she has been taking ibuprofen daily 800 mg for years due to her headache, she had an endoscopy 3 years ago which at that time was unremarkable. On review of systems patient is complaining of fatigue, shortness of breaths on exertion ongoing for the last 2 weeks and nausea. she is also having midsternal vague CP associated with L arm numbness. These symptoms are occuring now at rest. 04/03- patient is scheduled for left heart catheterization today we will follow up with Cardiology thereafter. If angiogram clean we will explore other options MSK versus GERD/PPI need. 04/04 patient chest pain is improving. She feels relieved with the results of left heart catheterization showing no coronary artery disease obstructions. EF during ventriculography was also normal. Patient will continue aspirin and Lipitor. Okay for discharge as cleared by Cardiology. Patient did describe symptoms as sharp burning which could potentially be reflux disease. Patient is stable for discharge as per plan below. Diagnosis: chest pain , due to below esophageal reflux possible esophageal spasm possible ruled out ACS And coronary artery disease history of abnormal stress test Obesity class 2 Dyslipidemia Prediabetes with Hb A1c 5.8% Discharge plan: - Take baclofen 10 mg nightly for 5 nights - Take Protonix 40 mg daily every morning - Avoid caffeine, spicy foods, late night meals - Continue aspirin 81 daily, continue Lipitor 40 mg daily - continue other home medications not mentioned above - Follow up with PCP to review discharge. Condition at Discharge: Good Final Diagnosis/Problems List Diagnosis: chest pain , due to below esophageal reflux possible esophageal spasm possible ruled out ACS And coronary artery disease history of abnormal stress test Obesity class 2 Dyslipidemia Prediabetes with Hb A1c 5.8% Discharge Disposition: Home Discharge Instruct/Medications Diet: Cardiac 2g Na,low cholest, See Comment Diet comment: See below Activity: No Restrictions, As Tolerated Follow Up/Referral: See below Medications: See below Discharge Statement: "Patient was advised to return to the ER or call 911 if any headaches, dizziness, shortness of breath, chest pain, abdominal pain, bleeding, fevers, or worsening of medical condition. Patient was counseled about treatment plan, medications, possible side effects, patientverbalized understanding. All questions were answered to the best of my ability. This discharge took greater then 30 minutes in planning, reviewing documentation, counseling the patient, and discussing with other team members." Date of Service: Apr 04, 2025 Billing Provider: JONAH DOVER MD Common Visit Codes: 94943-MAX/OBS DISCH DAY >30min JONAH DOVER MD Apr 04, 2025 12:11
[2025-04-04] MEDS ORDERED: BACLOFEN 10 MG TAB PO SCH (18:00)
--- NOTE | 2025-04-04 23:27 | DVHPN2 ---
Progress Note - Dictate Date Seen: Apr 04, 2025 Medical Necessity Reason Pt with a Central, PICC or Fol: No Subjective Patient was seen and evaluated in follow up. Patient has no new complaints at this time. Patient denies any cardiac symptoms. Patient is cardiac stable for discharge. Telemetry reviewed. vital signs Vital Sign Date Time Temp Pulse Resp B/P (MAP) Pulse Ox O2 Delivery O2 Flow Rate FiO2 04/04/25 09:00 98.5 93 19 131/69 (89) 93 98.5 04/04/25 08:00 Room Air* 0 21 Total Intake and Output 04/03/25 04/03/25 04/04/25 14:59 22:59 06:59 Intake Total 350 ml 800 ml Balance 350 ml 800 ml objective GENERAL: Alert and oriented x 3. No acute distress. EYES: PERRL, EOMI. Anicteric. HENT: Moist mucous membranes. LUNGS: Clear to auscultation bilaterally. CARDIOVASCULAR: Regular rate and rhythm. ABDOMEN: Soft, nontender and nondistended. EXTREMITIES: No edema. NEUROLOGIC: No focal neurological deficits. SKIN: Warm, dry. laboratory and microbiology Laboratory Tests 04/04/25 05:10 04/03/25 04:49 Test 04/04/25 05:10 Range/Units Serum Glucose 96 74-106 mg/dL Problem List Chest pain. Essential hypertension. Hyperlipidemia. Prediabetes. History of anemia. Assessment/Plan Continued all current supportive medical care. Morphine and [place] for pain. Aspirin Lipitor. IV Hydralazine for SBP >150. Nitro SL. GI prophylactics. Additional plan as per the hospital course. Plan discussed with: Patient PATEL CASTRO MD Apr 04, 2025 23:27
== END 2025-04-04 15:45 | disposition home or self-care (01) | DRG 392 ==
LOC: ER 07:42 → OVERFLOW 12:35 → TELE-WESTW 18:40
PROVIDERS: ADMIT Student in an Organized Health Care Education/Training Program; ATTEND Student in an Organized Health Care Education/Training Program
PROC: 4A023N7 Measurement of Cardiac Sampling and Pressure, Left Heart, Percutaneous Approach (ICD-10-PCS; principal; 2025-04-03)
PROC: B211YZZ Fluoroscopy of Multiple Coronary Arteries using Other Contrast (ICD-10-PCS; 2025-04-03)
PROC: B215YZZ Fluoroscopy of Left Heart using Other Contrast (ICD-10-PCS; 2025-04-03)
DX: K21.9 Gastro-esophageal reflux disease without esophagitis (principal); K22.4 Dyskinesia of esophagus; E66.812 Obesity, class 2; Z68.33 Body mass index [BMI] 33.0-33.9, adult; E78.5 Hyperlipidemia, unspecified; R73.03 Prediabetes; I10 Essential (primary) hypertension; Z88.5 Allergy status to narcotic agent
CPT/HCPCS: 36415; 71045; 80048; 80053; 84484; 85025; 85610; 85730; 86850; 86900; 86901; 87081; 93005; 93452; 96360; 99152; G0378; J2250; J2470; Q9967